=== PATIENT | male | born 1980 | race Caucasian/White ===

== ENCOUNTER 2022-10-06 21:07 | Emergency (ER) | payer OTHER ==
[~2022-10-06] VITALS: Ht 198.1 cm; Wt 207.0 kg
[2022-10-06] MEDS ORDERED: VENTOLIN HFA18 GM INH (21:35)
[2022-10-06] MEDS ORDERED: JANTOVEN10 MG PO (21:36)
[2022-10-06] MEDS ORDERED: JANTOVEN4 MG PO (21:36)
[2022-10-06] MEDS ORDERED: LAMICTAL100 MG PO (21:37)
[2022-10-06] MEDS ORDERED: NEURONTIN100 MG PO (21:37)
[2022-10-06] MEDS ORDERED: METFORMIN HCL500 M2 PO (21:37)
[2022-10-06] MEDS ORDERED: ZESTRIL20 MG PO (21:38)
[2022-10-06] MEDS ORDERED: EFFEXOR XR150 MG PO (21:38)
[2022-10-06] MEDS ORDERED: OMEPRAZOLE20 MG PO (21:38)
== END 2022-10-07 00:50 | disposition home or self-care (01) ==
LOC: ED 21:07
DX: S40.012A Contusion of left shoulder, initial encounter (principal); S60.212A Contusion of left wrist, initial encounter; M54.2 Cervicalgia; R51.9 Headache, unspecified; I10 Essential (primary) hypertension; E78.00 Pure hypercholesterolemia, unspecified; E11.9 Type 2 diabetes mellitus without complications; J45.909 Unspecified asthma, uncomplicated; Z79.899 Other long term (current) drug therapy; Z86.711 Personal history of pulmonary embolism; Z79.01 Long term (current) use of anticoagulants; V47.5XXA Car driver injured in collision with fixed or stationary object in traffic accident, initial encounter; Z23 Encounter for immunization
CPT/HCPCS: 36415; 70450; 70486; 71260; 72125; 73030; 73110; 73610; 74177; 80053; 82553; 83690; 85025; 85610; 90471; 90472; 90715; 99284-25; G0480; Q9967

== ENCOUNTER 2024-05-27 23:40 | Emergency (ER) | payer MEDICAID ==
[~2024-05-27] VITALS: Ht 193 cm; Wt 190.0 kg
[2024-05-28 00:07] LABS: HEMATOCRIT 39.6 % (35.0-50.0); MCH 27.6 (27-36); MONOCYTES 6.5 % (0-12)
[2024-05-28 00:12] LABS: BASOPHILS 0.9 % (0-2); EOSINOPHILS 0.1 % (0-6); HEMOGLOBIN 13.2 g/dL (12.0-18.0); LYMPHOCYTES 28.3 % (24-44); MCHC 33.4 g/dl (30-36); MCV 82.5 fl (81-99); NEUTROPHILS 64.2 % (39-80); PLATELET COUNT 397 K/uL (140-440); RDW 14.7 (10.5-15.0)
[2024-05-28 01:21] VITALS: BP 177/96
== END 2024-05-28 01:22 | disposition home or self-care (01) ==
LOC: ED 23:40
PROVIDERS: Family Medicine
DX: E11.621 Type 2 diabetes mellitus with foot ulcer (principal); L97.511 Non-pressure chronic ulcer of other part of right foot limited to breakdown of skin; I10 Essential (primary) hypertension; Z79.01 Long term (current) use of anticoagulants; Z79.84 Long term (current) use of oral hypoglycemic drugs; Z79.899 Other long term (current) drug therapy
CPT/HCPCS: 36415; 85025; 99283

== ENCOUNTER 2024-08-06 17:20 | Emergency (ER) | payer OTHER ==
[~2024-08-06] VITALS: Ht 193 cm; Wt 187.2 kg
[~2024-08-06 17:20] MED LIST: BACTRIM DS TAB1 EACH PO; BENZONATATE100 MG PO; CEPHALEXIN500 M1 PO; CLEOCIN HCL300 MG PO; EFFEXOR XR150 MG PO; ELIQUIS5 MG PO; JANTOVEN10 MG PO; JANTOVEN4 MG PO; LAMICTAL100 MG PO; LISINOPRIL-HCT1 EAC2 PO; METFORMIN HCL500 M2 PO; NEURONTIN100 MG PO; OMEPRAZOLE20 MG PO; VENTOLIN HFA18 GM INH; VICTOZA 3-0.6 MG/0.1 SUB-Q; ZESTRIL20 MG PO
--- OUTSIDE RECORDS SUMMARY | 2024-08-06 17:26 | XMS ---
PreManage Notification: GILBERT GAINES Security Commissioned Sales Associate Events No recent Security Events currently on file CRITERIA MET - [facility] - 2 Visits in 30 Days CARE PROVIDERS KATE CASILLAS Nurse Practitioner: Family Basilio HANC[place] PHONE: [phone] Jayy has no Care Guidelines for this patient. Noel VISIT COUNT (12 MO.) 3 [facility] TOTAL 3 NOTE: Visits indicate total known visits. ED/UCC VISIT TRACKING (12 MO.) 08/06/2024 17:20 [facility] [place] TYPE: Emergency COMPLAINT: - FEET PAIN 07/13/2024 04:10 [facility] [place] TYPE: Emergency COMPLAINT: - SKIN PROBLEM DIAGNOSES: - Acute upper respiratory infection, unspecified - Cellulitis of left toe - Essential (primary) hypertension - senior living (current) use of anticoagulants - Non-pressure chronic ulcer of other part of left foot limited to breakdown of skin - Other truck terminal manager (current) drug therapy - Other specified soft tissue disorders - Pure hypercholesterolemia, unspecified - Type 2 diabetes mellitus with foot ulcer - Unspecified asthma, uncomplicated 05/27/2024 23:41 [facility] [place] TYPE: Emergency COMPLAINT: - WOUND CHECK/DIABETIC DIAGNOSES: - Essential (primary) hypertension - senior living (current) use of anticoagulants - termite exterminator helper (current) use of oral hypoglycemic drugs - Non-pressure chronic ulcer of other part of right foot limited to breakdown of skin - Other truck terminal manager (current) drug therapy - Type 2 diabetes mellitus with foot ulcer - Unspecified open wound, right foot, subsequent encounter INPATIENT VISIT TRACKING (12 MO.) No inpatient visits to display in this time frame [id number]
[2024-08-06] MEDS ORDERED: clindamycin HCL 300 MG CAP PO ONE (18:15)
[2024-08-06] MEDS ORDERED: AMOXICILLIN/CLAVULANATE K 875 MG TAB PO ONE (18:15)
[2024-08-06] MEDS ORDERED: AMOX TR-K CLV1 EAC1 PO (19:19)
[2024-08-06] MEDS ORDERED: PERCOCET 5-3251 EACH PO (19:19)
[2024-08-06] MEDS ORDERED: CLINDAMYCIN HC150 MG PO (19:19)
[2024-08-06 19:28] VITALS: BP 172/94
== END 2024-08-06 19:30 | disposition home or self-care (01) ==
LOC: ED 17:20
DX: E11.621 Type 2 diabetes mellitus with foot ulcer (principal); L97.521 Non-pressure chronic ulcer of other part of left foot limited to breakdown of skin; I10 Essential (primary) hypertension; K21.9 Gastro-esophageal reflux disease without esophagitis; Z79.899 Other long term (current) drug therapy; Z79.84 Long term (current) use of oral hypoglycemic drugs
CPT/HCPCS: 73630; 99283

== ENCOUNTER 2024-08-14 11:43 | Emergency (ER) | payer OTHER ==
[~2024-08-14] VITALS: Ht 193 cm; Wt 188.4 kg
[~2024-08-14 11:43] MED LIST changes: +AMOX TR-K CLV1 EAC1 PO; +CLINDAMYCIN HC150 MG PO; +PERCOCET 5-3251 EACH PO
--- OUTSIDE RECORDS SUMMARY | 2024-08-14 11:50 | XMS ---
PreManage Notification: GILBERT GAINES Security Data Developer Events No recent Security Events currently on file CRITERIA MET - [facility] - 2 Visits in 30 Days CARE PROVIDERS -, [facility] Dentist: Emergency Worker Current [place] PHONE: [phone] Jayy has no Care Guidelines for this patient. Noel VISIT COUNT (12 MO.) [address] [place] [address] TOTAL 4 NOTE: Visits indicate total known visits. 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 foot limited to breakdown of skin - Other retirement (current) drug therapy - Type 2 diabetes mellitus with foot ulcer 07/13/2024 04:10 [facility] [place] TYPE: Emergency COMPLAINT: - SKIN PROBLEM DIAGNOSES: - Acute upper respiratory infection, unspecified - Cellulitis of left toe - Essential (primary) hypertension - long term care pharmacist (current) use of anticoagulants - Non-pressure chronic ulcer of other part of left foot limited to breakdown of skin - Other termite inspector (current) drug therapy - Other specified soft tissue disorders - Pure hypercholesterolemia, unspecified - Type 2 diabetes mellitus with foot ulcer - Unspecified asthma, uncomplicated 05/27/2024 23:41 [facility] [place] TYPE: Emergency COMPLAINT: - WOUND CHECK/DIABETIC DIAGNOSES: - Essential (primary) hypertension - halfway (current) use of anticoagulants - halfway (current) use of oral hypoglycemic drugs - Non-pressure chronic ulcer of other part of right foot limited to breakdown of skin - Other retirement (current) drug therapy - Type 2 diabetes mellitus with foot ulcer - Unspecified open wound, right foot, subsequent encounter INPATIENT VISIT TRACKING (12 MO.) No inpatient visits to display in this time frame [id number]
[2024-08-14] MEDS ORDERED: HYDROCODONE/ACETA 5/325 TAB PO ONE (13:00)
[2024-08-14] MEDS ORDERED: ALLERGY RELIEF5 M1 PO (13:12)
[2024-08-14] MEDS ORDERED: BENADRYL25 MG PO (13:12)
[2024-08-14] MEDS ORDERED: PROPRANOLOL HCL10 MG PO (13:13)
[2024-08-14] MEDS ORDERED: LIPITOR40 MG PO (13:13)
[2024-08-14] MEDS ORDERED: HYDROCODON-ACE1 EAC8 PO (13:14)
[2024-08-14 14:19] VITALS: BP 145/98
== END 2024-08-14 14:24 | disposition home or self-care (01) ==
LOC: ED 11:43
DX: E11.621 Type 2 diabetes mellitus with foot ulcer (principal); L97.529 Non-pressure chronic ulcer of other part of left foot with unspecified severity; S89.92XA Unspecified injury of left lower leg, initial encounter; S49.91XA Unspecified injury of right shoulder and upper arm, initial encounter; I10 Essential (primary) hypertension; E78.00 Pure hypercholesterolemia, unspecified; J45.909 Unspecified asthma, uncomplicated; K21.9 Gastro-esophageal reflux disease without esophagitis; E66.9 Obesity, unspecified; Z68.43 Body mass index [BMI] 50.0-59.9, adult; Z86.711 Personal history of pulmonary embolism; Z79.01 Long term (current) use of anticoagulants; Z79.899 Other long term (current) drug therapy; Z79.84 Long term (current) use of oral hypoglycemic drugs; W19.XXXA Unspecified fall, initial encounter
CPT/HCPCS: 73030; 73560; 73610; 73630; 99283

== ENCOUNTER 2024-12-22 01:07 | Emergency (ER) | payer OTHER ==
[~2024-12-22] VITALS: Ht 193 cm; Wt 177.1 kg
[~2024-12-22 01:07] MED LIST changes: +ALLERGY RELIEF5 M1 PO; +BENADRYL25 MG PO; +HYDROCODON-ACE1 EAC8 PO; +LIPITOR40 MG PO; +PROPRANOLOL HCL10 MG PO
[2024-12-22] MEDS ORDERED: AMOX TR-K CLV1 EAC1 PO (01:54)
[2024-12-22 02:07] VITALS: BP 163/83
[2024-12-22] MEDS ORDERED: AMOXICILLIN/CLAVULANATE K 875 MG HOME.PACK PO ONE (02:30)
== END 2024-12-22 02:09 | disposition home or self-care (01) ==
LOC: ED 01:07
DX: E11.621 Type 2 diabetes mellitus with foot ulcer (principal); L97.529 Non-pressure chronic ulcer of other part of left foot with unspecified severity; S80.812A Abrasion, left lower leg, initial encounter; S91.331A Puncture wound without foreign body, right foot, initial encounter; E11.40 Type 2 diabetes mellitus with diabetic neuropathy, unspecified; I10 Essential (primary) hypertension; E78.00 Pure hypercholesterolemia, unspecified; J45.909 Unspecified asthma, uncomplicated; K21.9 Gastro-esophageal reflux disease without esophagitis; Z86.711 Personal history of pulmonary embolism; Z79.01 Long term (current) use of anticoagulants; Z79.84 Long term (current) use of oral hypoglycemic drugs; Z79.85 Long-term (current) use of injectable non-insulin antidiabetic drugs; Z79.899 Other long term (current) drug therapy; W18.31XA Fall on same level due to stepping on an object, initial encounter
CPT/HCPCS: 73630; 73660; 99283

== ENCOUNTER 2025-04-10 19:51 | Emergency (ER) | payer OTHER ==
[~2025-04-10] VITALS: Ht 193 cm; Wt 177.0 kg
[2025-04-10] MEDS ORDERED: SODIUM CHLORIDE 0.9% 1,000 ML IV ONE (22:45)
[2025-04-10] MEDS ORDERED: IBLOOD GLUCOSE TEST STRIP 1 EA TEST XX ONE (22:45)
[2025-04-10 23:16] LABS: BASOPHILS 0.6 % (0.2-1.2); EOSINOPHILS 4.4 % (0.8-7.0); HEMATOCRIT 41.4 % (40.1-51.0); HEMOGLOBIN 13.7 g/dL (13.7-17.5); LYMPHOCYTES 19.1 % (21.8-53.1); MCH 26.4 PG (25.7-32.2); MCHC 33.1 g/dL (32.3-36.5); MCV 79.9 fL (79.0-92.2); MONOCYTES 8.1 % (5.3-12.2); NEUTROPHILS 67.4 % (34.0-67.9); PLATELET COUNT 304 K/uL (163-337); RBC 5.18 M/uL (4.63-6.08)
[2025-04-10 23:34] LABS: BILIRUBIN, URINE NEGATIVE (negative); BLOOD/HGB, URINE NEGATIVE (Negative); KETONE, URINE NEGATIVE (Negative); LEUK ESTERASE, URINE NEGATIVE (negative); NITRITE, URINE POSITIVE (negative)
[2025-04-10 23:38] LABS: ALBUMIN/GLOBULIN RATIO 0.61 (1.1-2.4); ALCOHOL, MEDICAL <3 ng/dL (<3); ALKALINE PHOSPHATASE 96 U/L (46-116); ALT (SGPT) 30 U/L (14-59); ANION GAP 10.6 (7-21); AST (SGOT) 21 U/L (15-37); BILIRUBIN, TOTAL 1.3 mg/dL (0.2-1.0); BUN/CREATININE RATIO 10.22 (6.0-28.6); CALCIUM 8.6 mg/dL (8.5-10.1); CARBON DIOXIDE 29 mmol/L (21-32); CHLORIDE 101 mmol/L (98-107); CREATININE, SERUM 0.88 mg/dL (0.70-1.30); GLOMERULAR FILTRATION RATE,EST 109 mL/min (>60); POTASSIUM 3.6 mmol/L (3.5-5.1); PROTEIN, TOTAL 7.9 g/dL (6.4-8.2); UREA NITROGEN 9 mg/dL (7-18)
[2025-04-10 23:40] LABS: EPITHELIAL CELLS, URINE SQUAMOUS 1+ /lpf (0-1+)
[2025-04-10 23:41] LABS: BACTERIA, URINE 3+ /hpf (negative); CASTS, URINE NONE SEEN \\lpf; COLLECTION TYPE, URINE CLEAN CATCH; CRYSTALS, URINE NONE SEEN (0-1+); RED BLOOD CELLS, URINE 0-1 /hpf (0-5); REFLEX CULTURE, URINE Yes (No)
[2025-04-10 23:49] LABS: AMPHETAMINES, URINE POSITIVE (NEGATIVE); BARBITURATES, URINE NEGATIVE (NEGATIVE); BENZODIAZEPINE, URINE NEGATIVE (NEGATIVE); BUPRENORPHINE, URINE NEGATIVE (NEGATIVE); CANNABINOID, URINE POSITIVE (NEGATIVE); COCAINE, URINE NEGATIVE (NEGATIVE); ECSTASY, URINE NEGATIVE (NEGATIVE); FENTANYL, URINE NEGATIVE (NEGATIVE); METHADONE, URINE NEGATIVE (NEGATIVE); OPIATES, URINE NEGATIVE (NEGATIVE); OXYCODONE, URINE NEGATIVE (NEGATIVE); PHENCYCLIDINE, URINE NEGATIVE (NEGATIVE)
[2025-04-11] MEDS ORDERED: TRIMETHOPRIM/SULFAMETHOXAZOLE 1 EA HOME.PACK PO ONE (00:30)
[2025-04-11 00:46] VITALS: BP 140/87
--- NOTE | 2025-04-11 13:51 | EKG ---
[facility] [address] [place] [address] Signed Normal sinus rhythm Low voltage QRS Borderline ECG No previous ECGs available Confirmed by Keron Velásquez MD () on 04/11/2025 1:51:08 PM Electronically Signed By: KERON VELÁSQUEZ MD 04/11/25 135 PATIENT NAME: GILBERT GANIES Electrocardiogram DATE OF : 80 PHYSICIAN: KERON VELÁSQUEZ MD REPORT #: [id number] REPORT IS CONFIDENTIAL AND NOT TO BE RELEASED WITHOUT AUTHORIZATION
== END 2025-04-11 00:47 | disposition home or self-care (01) ==
LOC: ED 19:51
PROVIDERS: Family Medicine
DX: L03.116 Cellulitis of left lower limb (principal); E08.621 Diabetes mellitus due to underlying condition with foot ulcer; N39.0 Urinary tract infection, site not specified; F19.10 Other psychoactive substance abuse, uncomplicated; K21.9 Gastro-esophageal reflux disease without esophagitis; J45.909 Unspecified asthma, uncomplicated; E78.00 Pure hypercholesterolemia, unspecified; I10 Essential (primary) hypertension; Z91.141 Patient's other noncompliance with medication regimen due to financial hardship; Z79.84 Long term (current) use of oral hypoglycemic drugs; Z79.899 Other long term (current) drug therapy
CPT/HCPCS: 36415; 73610; 73630; 80053; 80307; 81001; 82010; 82803; 83880; 84484; 85025; 87088; 87186; 93005; 93010; 99284; A9270; G0480; J7030

== ENCOUNTER 2025-04-23 02:27 | Inpatient (IN) | payer OTHER ==
[~2025-04-23] VITALS: Ht 193 cm; Wt 183.0 kg
[2025-04-23] VITALS (7 sets, daily range): BP systolic 111–131; BP diastolic 61–76
--- OUTSIDE RECORDS SUMMARY | 2025-04-23 02:33 | XMS ---
PreManage Notification: GILBERT GAINES Security Hotel Breakfast Attendant Events No recent Security Events currently on file CRITERIA MET - [facility] - 2 Visits in 30 Days CARE PROVIDERS -, [facility] Dentist: Director Of [facility]quis[facility] PHONE: [phone] [facility] Clinic/Center: Primary [facility] PHONE: [phone] Jayy has no Care Guidelines for this patient. ESerafin VISIT COUNT (12 MO[address] [place] [address] TOTAL 7 NOTE: Visits indicate total known visits. ED/UCC VISIT TRACKING (12 MO.) 04/23/2025 02:27 [facility] [place] TYPE: Emergency COMPLAINT: - WOUND CHECK 04/10/2025 19:52 [facility] TYPE: Emergency COMPLAINT: - LEG PAIN/INJURY DIAGNOSES: - Cellulitis of left lower limb - Diabetes mellitus due to underlying condition with foot ulcer - Essential (primary) hypertension - Gastro-esophageal reflux disease without esophagitis - detention (current) use of oral hypoglycemic drugs - Other custodial (current) drug therapy - Other psychoactive substance abuse, uncomplicated - Pain in left ankle and joints of left foot - Patient's other noncompliance with medication regimen due to financial hardship - Pure hypercholesterolemia, unspecified - Type 2 diabetes mellitus with other skin complications - Unspecified asthma, uncomplicated - Urinary tract infection, site not specified 12/22/2024 01:08 [facility] [place] TYPE: Emergency COMPLAINT: - WOUND CHECK DIAGNOSES: - Abrasion, left lower leg, initial encounter - Encounter for change or removal of nonsurgical wound dressing - Essential (primary) hypertension - Fall on same level due to stepping on an object, initial encounter - Gastro-esophageal reflux disease without esophagitis - detention (current) use of anticoagulants - detention (current) use of oral hypoglycemic drugs - Long-term (current) use of injectable non-insulin antidiabetic drugs - Non-pressure chronic ulcer of other part of left foot with unspecified severity - Other terminal superintendent (current) drug therapy - Personal history of pulmonary embolism - Puncture wound without foreign body, right foot, initial encounter - Pure hypercholesterolemia, unspecified - Type 2 diabetes mellitus with diabetic neuropathy, unspecified - Type 2 diabetes mellitus with foot ulcer - Unspecified asthma, uncomplicated 08/14/2024 11:44 [facility] [place] TYPE: Emergency COMPLAINT: - LT TOE PAIN DIAGNOSES: - Body mass index [BMI] 50.0-59.9, adult - Essential (primary) hypertension - Gastro-esophageal reflux disease without esophagitis - terminal operations manager (current) use of anticoagulants - detention (current) use of oral hypoglycemic drugs - Non-pressure chronic ulcer of other part of left foot with unspecified severity - Obesity, unspecified - Other terminal superintendent (current) drug therapy - Personal history of pulmonary embolism - Pure hypercholesterolemia, unspecified - Type 2 diabetes mellitus with foot ulcer - Unspecified asthma, uncomplicated - Unspecified fall, initial encounter - Unspecified injury of left lower leg, initial encounter - Unspecified injury of right shoulder and upper arm, initial encounter - Unspecified open wound of left great toe without damage to nail, initial encounter 08/06/2024 17:20 [facility] [place] TYPE: Emergency COMPLAINT: - FEET PAIN DIAGNOSES: - Essential (primary) hypertension - Gastro-esophageal reflux disease without esophagitis - terminal operations manager (current) use of oral hypoglycemic drugs - Non-pressure chronic ulcer of other part of left foot limited to breakdown of skin - Other custodial (current) drug therapy - Type 2 diabetes mellitus with foot ulcer 07/13/2024 04:10 [facility] [place] TYPE: Emergency COMPLAINT: - SKIN PROBLEM DIAGNOSES: - Acute upper respiratory infection, unspecified - Cellulitis of left toe - Essential (primary) hypertension - detention (current) use of anticoagulants - Non-pressure chronic ulcer of other part of left foot limited to breakdown of skin - Other custodial (current) drug therapy - Other specified soft tissue disorders - Pure hypercholesterolemia, unspecified - Type 2 diabetes mellitus with foot ulcer - Unspecified asthma, uncomplicated 05/27/2024 23:[address] [facility] [place] TYPE: Emergency COMPLAINT: - WOUND CHECK/DIABETIC DIAGNOSES: - Essential (primary) hypertension - detention (current) use of anticoagulants - detention (current) use of oral hypoglycemic drugs - Non-pressure chronic ulcer of other part of right foot limited to breakdown of skin - Other custodial (current) drug therapy - Type 2 diabetes mellitus with foot ulcer - Unspecified open wound, right foot, subsequent encounter INPATIENT VISIT TRACKING (12 MO.) No inpatient visits to display in this time frame [id number]
[2025-04-23] MEDS ORDERED: LIRAGLUTID0.6 MG/0.1 SUB-Q (02:51)
[2025-04-23 02:59] LABS: BASOPHILS 0.8 % (0.2-1.2); EOSINOPHILS 0 % (0.8-7.0); LYMPHOCYTES 24.2 % (21.8-53.1); MCH 26.1 PG (25.7-32.2); MCHC 32.5 g/dL (32.3-36.5); MCV 80.4 fL (79.0-92.2); MONOCYTES 10.4 % (5.3-12.2); NEUTROPHILS 63.8 % (34.0-67.9); RBC 4.90 M/uL (4.63-6.08)
[2025-04-23] MEDS ORDERED: PIPERACILLIN/TAZOBACTAM 4.5 GM in SODIUM CHLORIDE 0.9% 100 ML IV ONE (03:00)
[2025-04-23] MEDS ORDERED: DAPTOmycin 500 MG/10 ML VIAL IV ONE ×2 (03:00→09:00)
[2025-04-23 03:15] LABS: ALT (SGPT) 25.0 U/L (14-59); AST (SGOT) 23.0 U/L (15-37); GLOMERULAR FILTRATION RATE,EST 85.0 mL/min (>60); PROTEIN, TOTAL 8.5 g/dL (6.4-8.2); UREA NITROGEN 14.0 mg/dL (7-18)
[2025-04-23 03:21] LABS: LACTIC ACID, BLOOD 0.8 mmol/L (0.4-2.0)
[2025-04-23 04:04] LABS: ERYTHROCYTE SEDIMENTATION RATE 69
[2025-04-23] MEDS ORDERED: HYDROCODONE/ACETA 5/325 TAB PO ONE (04:45)
[2025-04-23 06:26] LABS: BLOOD/HGB, URINE NEGATIVE (Negative); KETONE, URINE NEGATIVE (Negative); LEUK ESTERASE, URINE NEGATIVE (negative); NITRITE, URINE NEGATIVE (negative)
[2025-04-23 06:31] LABS: AMPHETAMINES, URINE POSITIVE (NEGATIVE); BARBITURATES, URINE NEGATIVE (NEGATIVE); BENZODIAZEPINE, URINE NEGATIVE (NEGATIVE); CANNABINOID, URINE POSITIVE (NEGATIVE); COCAINE, URINE NEGATIVE (NEGATIVE); ECSTASY, URINE NEGATIVE (NEGATIVE); FENTANYL, URINE NEGATIVE (NEGATIVE); METHADONE, URINE NEGATIVE (NEGATIVE); OPIATES, URINE NEGATIVE (NEGATIVE); OXYCODONE, URINE NEGATIVE (NEGATIVE); PHENCYCLIDINE, URINE NEGATIVE (NEGATIVE)
[2025-04-23] MEDS ORDERED: ACETAMINOPHEN 325 MG TAB PO PRN ×2 (07:00→09:15)
--- NOTE | 2025-04-23 07:45 | NUR ---
PT ARRIVES TO MED-SURG VIA GURNEY AT 0735. PT AMBULATES FROM GURNEY TO BED, TOLERATES THIS WELL. VERBAL REPORT RECEIVED FROM PAMELA LOVE. VSS. PT ORIENTED TO ROOM, BED, AND CALL LIGHT. ICE WATER PROVIDED PER PT REQUEST.
[2025-04-23] MEDS ORDERED: LAMOTRIGINE200 MG PO (08:12)
[2025-04-23] MEDS ORDERED: VENLAFAXINE HCL75 M1 PO (08:15)
[2025-04-23] MEDS ORDERED: VENLAFAXINE HCL 75 MG CAPCR PO SCH ×3 (09:14→09:30)
[2025-04-23] MEDS ORDERED: PROPRANOLOL HCL 10 MG TAB PO SCH (09:14)
[2025-04-23] MEDS ORDERED: ENOXAPARIN SODIUM 150 MG/ML SUB-Q SCH (09:15)
[2025-04-23] MEDS ORDERED: lamoTRIgine 100 MG TAB PO SCH (09:15)
[2025-04-23] MEDS ORDERED: PANTOPRAZOLE SODIUM 40 MG TABEC PO SCH (09:15)
[2025-04-23] MEDS ORDERED: SODIUM CHLORIDE 0.9% 1,000 ML IV ONE (09:15)
[2025-04-23] MEDS ORDERED: ENOXAPARIN SODIUM 60 MG/0.6 ML SYR SUB-Q SCH (09:32)
[2025-04-23] MEDS ORDERED: ENOXAPARIN SODIUM 100 MG/ML SYR SUB-Q SCH (09:36)
[2025-04-23] MEDS ORDERED: ENOXAPARIN SODIUM 80 MG/0.8 ML SYR SUB-Q SCH (09:37)
[2025-04-23] MEDS ORDERED: DEXTROSE 5% 1,000 ML IV PRN (10:45)
[2025-04-23] MEDS ORDERED: IBLOOD GLUCOSE TEST STRIP 1 EA TEST XX PRN (10:45)
[2025-04-23] MEDS ORDERED: DEXTROSE 50% 50 ML SYR IV PRN ×2 (10:45)
[2025-04-23] MEDS ORDERED: GLUCAGON,HUMAN RECOMBINANT 1 MG/ML VIAL SUB-Q PRN (10:45)
[2025-04-23] MEDS ORDERED: IBLOOD GLUCOSE TEST STRIP 1 EA TEST XX SCH (12:00)
[2025-04-23] MEDS ORDERED: PHARMACY RENAL DOSE ADJUSTMENT 1 DOSE MISC PO SCH (12:00)
[2025-04-23] MEDS ORDERED: INSULIN LISPRO 100 UNIT/ML ML SUB-Q SCH (12:00)
[2025-04-23] MEDS ORDERED: ALBUTEROL SULFATE 0.083% 3 ML VIAL INH PRN (12:00)
[2025-04-23] MEDS ORDERED: PIPERACILLIN/TAZOBACTAM 4.5 GM in SODIUM CHLORIDE 0.9% 100 ML IV SCH (12:45)
--- NOTE | 2025-04-23 14:33 | NUR ---
PATIENT IN BED RESTING WITH EYES CLOSED AT THIS TIME. VITALS AND I&O'S DONE AND CHARTED. CALL LIGHT IN REACH. NO FURTHER NEEDS AT THIS TIME.
--- NOTE | 2025-04-23 16:12 | NUR ---
PT RESTING IN BED, REPORTS FEELING TIRED. RT AT BEDSIDE TO FIT CPAP MACHINE, PT TOLERATING WELL. PT REPORTS PAIN 5/10 AT THIS TIME, WHICH IS TOLERABLE. COFFEE PROVIDED PER REQUEST, DENIES FURTHER NEEDS. CALL LIGHT IN REACH
--- NOTE | 2025-04-23 17:04 | NUR ---
PT RESTS IN BED WITH CPAP IN PLACE, PT IS AWAKE AND RESTING. CALL LIGHT IN REACH, NO REQUESTS AT THIS TIME.
--- NOTE | 2025-04-23 18:10 | NUR ---
DR. MAZARIEGOS INTO SEE PT, LANCES WOUND, IRRIGATES, OBTAINES WOUND CULTURE AND DRESSING LEFT FOOT WOUND, PT TOLERATES WELL.
--- NOTE | 2025-04-23 19:25 | NUR ---
REPORT RECEIVED FROM DAYSSRI RN. PATIENT IS SITTING ON SIDE OF BED. LEFT FOOT WRAPPED IN BRITTA BANDAGE. REPORTS NO PAIN TO LLE ON PALPATION. HE DENIES ANY NEEDS, CALL LIGHT IN REACH
--- NOTE | 2025-04-23 19:30 | NUR ---
PHONE CALL FROM pt'S SISTER MONICA. IN TO CHECK ON pt, RESTING IN BED ON RIGHT SIDE WITH EYES CLOSED. NO DISTRESS NOTED. PRIMARY RN UPDATED SISTER WOULD LIKE UPDATE, NOT ON pt'S CONTACT LIST. [phone].
--- NOTE | 2025-04-23 22:20 | NUR ---
ASSESSMENT COMPLETED. SCHEDULED MEDICATIONS GIVEN PER ORDER. IV DRESSING SECURED. PATIENT WEARING CPAP FOR BEDTIME. HE DENIES ANY NEEDS, CALL LIGHT IN REACH.
--- NOTE | 2025-04-23 23:25 | NUR ---
CPOX IN PLACE.
[2025-04-24] VITALS (9 sets, daily range): BP systolic 101–133; BP diastolic 57–81
--- NOTE | 2025-04-24 00:05 | NUR ---
ROUNDED ON PATIENT, PATIENT RESTING WITH EYES CLOSED, RESPIRATIONS EVEN AND UNLABORED. CPAP IN PLACE, CPOX IN PLACE. NO NEEDS IDENTIFIED, CALL LIGHT IN REACH
--- NOTE | 2025-04-24 02:38 | NUR ---
HORN PLAYER IN ROOM TO OBTAIN VS, IV MEDICATION COMPLETED, IV SALINE LOCKED AT THIS TIME. NO NEEDS, CALL LIGHT IN REACH
--- NOTE | 2025-04-24 03:19 | NUR ---
CALL LIGHT ANSWERED, PRN PAIN MEDICATION GIVEN PER REQUEST. PATIENT STATES "IT FEELS LIKE SOMEONE IS STABBING MY FOOT". HE DECLINES OFFER TO ELEVATE LEG ON PILLOW. HE DENIES FURTHER NEEDS, CALL LIGHT IN REACH
--- NOTE | 2025-04-24 03:29 | NUR ---
IN ROOM IN RESPONSE TO BED ALARM, PATIENT STATES HE WAS ATTEMPTING TO STAND AND USE URINAL. PATIENT USED URINAL AND SAT AT THE EDGE OF THE BED. REQUESTING TO SIT ON EDGE OF BED FOR A BIT. BED ALARM ON, PATIENT VERBALIZED UNDERSTANDING THAT ALARM WILL GO OFF IF HE STANDS UP. CALL LIGHT IN REACH
[2025-04-24 05:22] LABS: BASOPHILS 1.0 % (0.2-1.2); EOSINOPHILS 2.9 % (0.8-7.0); LYMPHOCYTES 40.2 % (21.8-53.1); MCH 26.6 PG (25.7-32.2); MCHC 33.4 g/dL (32.3-36.5); MCV 79.6 fL (79.0-92.2); MONOCYTES 9.0 % (5.3-12.2); NEUTROPHILS 46.4 % (34.0-67.9); RBC 4.51 M/uL (4.63-6.08)
[2025-04-24 05:34] LABS: GLOMERULAR FILTRATION RATE,EST 115.0 mL/min (>60); UREA NITROGEN 10.0 mg/dL (7-18)
--- NOTE | 2025-04-24 06:21 | NUR ---
SCHEDULED MED ADMINISTERED PER ORDER. VS OBTAINED AND RECORDED. INTAKE AND OUTPUT DOCUMENTED. PATIENT RESTING FOLLOWING ASSESSMENT. LEFT FOOT REMAINS DRESSED IN BRITTA BANDAGE, DRESSING IS C/D/I. REDNESS ON THE LEFT LEG IS OUTLINED. HE DENIES FURTHER NEEDS, CALL LIGHT IN REACH
--- NOTE | 2025-04-24 07:39 | NUR ---
RECIEVED SHIFT REPORT. PT IS RESTING IN BED, EYES CLOSED, BREATHING EVEN AND UNLABORED. CALL LIGHT IN REACH.
--- NOTE | 2025-04-24 07:57 | NUR ---
DR HURTADO IN ROOM. TO CHANGE DRESSING ON LEFT FOOT. REDRESSED WITH IODINE, IDOFLEX, ABD PAD, KRELEX, AND COBAND. PAIN LEVEL TOLERABLE AT THIS TIME. SAT UP ON THE SIDE OF BED FOR BREAKFAST. DENIES NEEDS AT THIS TIME. CALL LIGHT IN REACH.
[2025-04-24] MEDS ORDERED: DAPTOmycin 500 MG/10 ML VIAL IV SCH (09:00)
--- NOTE | 2025-04-24 09:18 | NUR ---
PATIENT IS CURRENTLY SITTING UP IN THE RECLINER. WORKED WITH PT AND BRUSHED THEIR TEETH, WASHED FACE, AND BRUSHED HAIR WITH OT. BED LINENS WERE CHANGED BY THIS AUDIO RECORDING ENGINEER. URINAL EMPTIED AND RINSED. CALL LIGHT AND PERSONAL ITEMS ARE WITHIN REACH. A HOT PACK WAS PROVIDED. NO OTHER CARES WERE REQUESTED.
--- NOTE | 2025-04-24 09:52 | NUR ---
INTO ROOM FOR MEDICATION ADMINISTRATION. PT SITTING UP IN CHAIR, RESTING WITH EYES CLOSED. MRI IN ROOM TO TAKE PT FOR L FOOT MRI. UPDATED PT ON PLANS, DENIES NEEDS AT THIS TIME
--- NOTE | 2025-04-24 10:18 | NUR ---
UR CLINICAL REVIEW: MCG-PER MCG REVIEW MEETS INPT FOR OSTEOMYELITIS WITH NEED FOR SURGICAL INTERVENTION AND IV ABX [facility] INPT 04/23/25 @ 0649 ORDER MATCHES REG CLINICAL FAXED TO [facility] FOR AUTH REVIEW DISCHARGE TO HOME WHEN STABLE. TO OR FOR SURGICAL PROCEDURE 04/26/25. 04/25/25 DC REVIEW
--- NOTE | 2025-04-24 11:00 | NUR ---
Spoke with Lj. He lives in apartment with roommates. one step into the home. He does not use any DME, he drives. He does run out of food at times. List of food benavides and resources given. He does not remember who his pcp is. He thinks they are at [facility]. I called PF and he is not there pt and has not been seen in their Urgent Care. I called [facility] and pt was seen there in the past. They will accept him back. Appt scheduled for 03/03/25 at 1 pm. Pt denies other needs and plans on dc to home when cleared medically. Pt will drive himself as he drive himself in.
--- NOTE | 2025-04-24 11:10 | NUR ---
PT BACK FROM MRI. MEDICATIONS GIVEN PER ORDER. PT REPORTS PAIN 3/10 IN L FOOT, TOLERABLE AT THIS TIME. DENIES FURTHER NEEDS
--- NOTE | 2025-04-24 12:20 | NUR ---
PT SITTING UP ON THE SIDE OF THE BED, EATING LUNCH. PROVIDED WITH COFFEE PER REQUEST. DENIES FURTHER NEEDS, CALL LIGHT IN REACH
--- NOTE | 2025-04-24 13:50 | NUR ---
IN ROOM FOR IV ABX ADMINISTRATION. PT RESTING IN BED, EYES CLOSED. HAZMAT CDL A DRIVER IN ROOM TO PREPARE PT FOR SHOWER.
--- NOTE | 2025-04-24 15:30 | NUR ---
PT FINISHED WITH SHOWER, NOW BACK SITTING IN BED. IV ABX CONTINUING. PROVIDED WITH CORETTA AND ICE WATER PER REQUEST. UPDATED PT ON PLAN OF CARE, DENIES NEEDS AT THIS TIME. CALL LIGHT IN REACH
[2025-04-24] MEDS ORDERED: HYDROCODONE/APAP 10/325 1 TAB PO PRN (16:15)
--- NOTE | 2025-04-24 16:45 | NUR ---
INTO ROOM FOR MEDICATION ADMINISTRATION. UPDATED PT ON PLAN OF CARE. URINAL EMPTIED. PROVIDED WITH HEAT PACK AND ICE WATER PER REQUEST. NO OTHER NEEDS, CALL LIGHT IN REACH
--- NOTE | 2025-04-24 19:36 | NUR ---
REPORT RECEIVED FROM DAY SHIFT RN. PATIENT RESTING IN BED. DENIES NEEDS AT THIS TIME. CALL LIGHT IN REACH.
--- NOTE | 2025-04-24 21:42 | NUR ---
PATIENT RESTING IN BED. SCHEDULED MEDICATION ADMINISTERED. PATIENT DENIES NEEDS AT THIS TIME. PATIENT DENIES PAIN. ASSESSMENT COMPLETE. LLE DRESSING C/D/I. NO FURTHER NEEDS. CALL LIGHT IN REACH.
--- NOTE | 2025-04-24 23:19 | NUR ---
PATIENT RESTING IN BED WITH EYES CLOSED. RESPIRATIONS EVEN AND UNLABORED. CPAP IN PLACE. CPOX IN PLACE. NO FURTHER NEEDS. CALL LIGHT IN REACH.
--- NOTE | 2025-04-24 23:55 | NUR ---
PATIENT CALLED REQUESTING ANOTHER HOSPITAL GOWN. PATIENT USED THE URINAL AND MISSED SOME ON THE FLOOR AND WET THE GOWN. GOWN ON AND CLEANED THE FLOOR AND WIPED WITH PURPLE WIPES. NO OTHER NEEDS AT THIS TIME. EMPTIED URINAL WITH 950ML YELLOW URINE. WHITE BOARD UPDATED.
[2025-04-25] VITALS (9 sets, daily range): BP systolic 107–125; BP diastolic 58–81
--- NOTE | 2025-04-25 01:05 | NUR ---
PATIENT RESTING IN BED WITH EYES CLOSED. RESPIRATIONS EVEN AND UNLABORED. CALL LIGHT IN REACH.
--- NOTE | 2025-04-25 02:43 | NUR ---
PATIENT RESTING IN BED ON BACK WITH EYES CLOSED. RESPIRATIONS EVEN AND UNLABORED. CALL LIGHT IN REACH.
--- NOTE | 2025-04-25 04:16 | NUR ---
PATIENT RESTING IN BED WITH EYES CLOSED. RESPIRATIONS EVEN AND UNLABORED. CALL LIGHT IN REACH.
[2025-04-25 05:50] LABS: BASOPHILS 0.8 % (0.2-1.2); EOSINOPHILS 0.3 % (0.8-7.0); LYMPHOCYTES 34.9 % (21.8-53.1); MCH 26.1 PG (25.7-32.2); MCHC 33.1 g/dL (32.3-36.5); MCV 78.9 fL (79.0-92.2); MONOCYTES 6.8 % (5.3-12.2); NEUTROPHILS 56.7 % (34.0-67.9); RBC 4.79 M/uL (4.63-6.08)
--- NOTE | 2025-04-25 06:00 | NUR ---
PATIENT RESTING IN BED, REPORTING 7/10 LEFT FOOT PAIN. PRN PAIN MEDICATION ADMINISTERED PER PATIENT REQUEST. IV ABX INFUSING PER ORDER. PATIENT HAS NO FURTHER NEEDS. CALL LIGHT IN REACH.
[2025-04-25 06:02] LABS: GLOMERULAR FILTRATION RATE,EST 117.0 mL/min (>60); UREA NITROGEN 8.0 mg/dL (7-18)
--- NOTE | 2025-04-25 07:24 | NUR ---
REPORT RECEIVED FROM PAMELA STRATTON. PT RESTING IN BED, IV ABX CONTIUING. REPORTS PAIN HAS IMPROVED, TOLERABLE AT THIS TIME. DENIES NEEDS. CALL LIGHT IN REACH. DR VELÁSQUEZ NOTIFIED OF POSITIVE BLOOD CULTURE, NO NEW ORDERS
--- NOTE | 2025-04-25 08:50 | NUR ---
INTO ROOM FOR MEDICATION ADMINISTRATION. PT REPORTS THAT PAIN IS TOLERABLE, 5/10 AT THIS TIME. NEW IV PLACED IN RFA PER PT REQUEST. IV IN LAC SL. IV ABX CONTINUING PER EMAR ORDER. PT NOW EATING BREAKFAST, CALL LIGHT IN REACH
--- NOTE | 2025-04-25 09:20 | NUR ---
INTO ROOM TO ANSWER CALL LIGHT. REPORTS FEELING NAUSEOUS. PRN ZOFRAN GIVEN PER EMAR. CALL LIGHT IN REACH
--- NOTE | 2025-04-25 09:27 | NUR ---
MED REC COMPLETE
--- NOTE | 2025-04-25 10:08 | NUR ---
DISCHARGE REVIEW: NO PCP AND LACK OF FOOD NOTED BARRIERS TO DC. APPOINTMENT MADE BY CM TO REESTABLISH CARE WITH [facility]. LIIST OF FOOD [place] [employer]OURCES GIVEN. DISCHARGE TO HOME WHEN STABLE. SCEDULED FOR OR PROCEDURE 04/26/25 ADD 04/26/25 FOLLOWING PROCEDURE NO ESCALATIONS/ACTIONS NEEDED
--- NOTE | 2025-04-25 11:10 | NUR ---
PT RESTING IN BED, EYES CLOSED. RESPIRATIONS EVEN. IV ABX COMPLETE. RFA IV SL. DENIES NEEDS, CALL LIGHT IN REACH
--- NOTE | 2025-04-25 11:52 | NUR ---
INTO ROOM FOR MEDICATION ADMINISTRATION. UPDATED ON PLAN OF CARE, DENIES NEEDS, CALL LIGHT IN REACH
--- NOTE | 2025-04-25 12:34 | NUR ---
PT SLEEPING IN BED, RESPIRATIONS EVEN. CALL LIGHT ON BEDSIDE TABLE IN REACH
--- NOTE | 2025-04-25 14:13 | NUR ---
INTO ROOM TO START IV ABX PER ORDER. PROVIDED PT WITH MILK AND COFFEE PER REQUEST. DENIES FURTHER NEEDS, CALL LIGHT IN REACH
--- NOTE | 2025-04-25 14:33 | NUR ---
ATTEMPTS TO SEE PATIENT TODAY, HAS BEEN RESTING. PLANS TO DC TO HOME WHEN MEDICALLY READY. PCP ESTABLISHED WELL RESOURCES FOR FOOD PROVIDED. NO FURHTER CM NEEDS AT THIS TIME.
--- NOTE | 2025-04-25 15:28 | NUR ---
PT RESTING IN BED, NO DISTRESS NOTED. ASSESSMENT COMPETED. PT REPORTS THAT PAIN IS 4/10, TOLERABLE AT THIS TIME. PROVIDED WITH COFFEE PER REQUEST. IV ABX CONTINUING PER ORDER. DENIES FURTHER NEEDS. CALL LIGHT IN REACH
--- NOTE | 2025-04-25 16:44 | NUR ---
PT RESTING IN BED, URINAL EMPTIED. DENIES FURTHER NEEDS, CALL LIGHT IN REACH
--- NOTE | 2025-04-25 18:17 | NUR ---
PT RESTING IN BED, REPORTS PAIN TOLERABLE AT THIS TIME. IV ABX COMPLETE. DENIES FURTHER NEEDS, CALL LIGHT IN REACH
--- NOTE | 2025-04-25 18:32 | NUR ---
PATIENT WAS OFFERED A SHOWER BUT DECLINED, STATING THEY WERE OKAY AFTER HAVING ONE YESTERDAY. BED LINENS AND GOWN WERE CHANGED. COFFEE AND SODA PROVIDED TO DRINK. NO OTHER CARES WERE REQUESTED.
--- NOTE | 2025-04-25 19:17 | NUR ---
REPORT RECEIVED FROM DAY SHIFT RN. PATIENT RESTING IN BED. DENIES NEEDS AT THIS TIME. CALL LIGHT IN REACH.
[2025-04-25] MEDS ORDERED: SODIUM CHLORIDE 0.9% 1,000 ML IV SCH (20:45)
--- NOTE | 2025-04-25 21:30 | NUR ---
PATIENT RESTING IN BED. SCHEDULED MEDICATION ADMINISTERED. ASSESSMENT COMPLETE. LLE DRESSING C/D/I. PATIENT DENIES PAIN. SCHEDULED IV FLUID INFUSING PER ORDER. PATIENT EDUCATED ON NPO STATUS AT MIDNIGHT. PATIENT VERBILIZES UNDERSTANDING. PATIENT DENIES FURTHER NEEDS. CALL LIGHT IN REACH. CPOX IN PLACE.
--- NOTE | 2025-04-25 23:08 | NUR ---
ROUTE SALESMAN AND DRIVER GAVE PT ONE MILK, TWO PACKS OF GRAHM CRACKERS, AND TWO PUDDINGS.
--- NOTE | 2025-04-25 23:32 | NUR ---
PATIENT RESTING IN BED. DENIES NEEDS AT THIS TIME. RR EVEN AND UNLABORED. CALL LIGHT IN REACH.
--- NOTE | 2025-04-25 23:59 | NUR ---
PATIENT NPO AT THIS TIME. FLUIDS/FOOD REMOVED FROM BESIDE. WHITE BOARD UPDATED. NPO SIGN ON DOOR.
[2025-04-26] VITALS (12 sets, daily range): BP systolic 123–139; BP diastolic 67–82
--- NOTE | 2025-04-26 00:59 | NUR ---
PATIENT RESTING IN BED ON BACK WITH EYES CLOSED. RESPIRATIONS EVEN AND UNLABORED. CALL LIGHT IN REACH.
--- NOTE | 2025-04-26 02:52 | NUR ---
PATIENT RESTING IN BED. RESPIRATIONS EVEN AND UNLABORED. CALL LIGHT IN REACH.
--- NOTE | 2025-04-26 04:05 | NUR ---
PATIENT RESTING IN BED, AWAKE. CHLORHEXIDINE WIPE DOWN COMPLETED BY PATIENT AND THIS RN. NEW GOWN PLACED ON PATIENT. NEW LINENS, SLIDE SHEET, AND RODRIGUEZ PLACED ON BED. VS AND I&Os OBTAINED AND RECORDED. PATIENT LLE DRESSING C/D/I. PATIENT DENIES FURTHER NEEDS AT THIS TIME. CALL LIGHT IN REACH.
[2025-04-26 05:28] LABS: BASOPHILS 1.0 % (0.2-1.2); EOSINOPHILS 5.9 % (0.8-7.0); LYMPHOCYTES 40.8 % (21.8-53.1); MCH 26.4 PG (25.7-32.2); MCHC 33.3 g/dL (32.3-36.5); MCV 79.1 fL (79.0-92.2); MONOCYTES 7.2 % (5.3-12.2); NEUTROPHILS 44.5 % (34.0-67.9); RBC 4.74 M/uL (4.63-6.08)
[2025-04-26 05:39] LABS: GLOMERULAR FILTRATION RATE,EST 114.0 mL/min (>60); UREA NITROGEN 10.0 mg/dL (7-18)
--- NOTE | 2025-04-26 05:44 | NUR ---
CALL PLACED TO DAY SURGERY RN REGARDING PATIENT NOT HAVING AN EKG. EKG ORDER PLACED FOR PATIENT PRE OP.
--- NOTE | 2025-04-26 06:20 | NUR ---
SCHEDULED ABX PULLED TO ADMINISTER TO PATIENT. BEFORE INFUSING ABX, SURGERY RN CALLED MED SURG FLOOR AND SAID TO HOLD ABX DUE TO PATIENT HEADING TO SURGERY. SURGERY NURSE ON THE WAY TO GET PATIENT AT THIS TIME.
--- NOTE | 2025-04-26 06:26 | NUR ---
PATIENT OFF FLOOR WITH DAY SURGERY RN.
[2025-04-26] MEDS ORDERED: LIDOCAINE HCL 2% 20 ML MDV ONE (06:27)
[2025-04-26] MEDS ORDERED: Ropivacaine HCl 0.5% 30 ML VIAL ONE (06:27)
[2025-04-26] MEDS ORDERED: VANCOMYCIN HCL 500 MG VIAL ONE (06:27)
[2025-04-26] MEDS ORDERED: LIDOCAINE HCL 2% 5 ML SDV ONE (06:56)
[2025-04-26] MEDS ORDERED: FAMOTIDINE 20 MG/ 2 ML VIAL ONE (06:58)
[2025-04-26] MEDS ORDERED: fentaNYL citrate 100 MCG/2 ML VIAL ONE (07:02)
[2025-04-26] MEDS ORDERED: MIDAZOLAM HCL 2 MG/2 ML VIAL ONE (07:02)
--- NOTE | 2025-04-26 07:05 | NUR ---
RECIEVED SHIFT REPORT. PT IS CURRENTY OFF UNIT FOR SURGICAL PROCEDURE.
[2025-04-26] MEDS ORDERED: METOCLOPRAMIDE HCL 10 MG/2 ML SDV ONE (07:09)
[2025-04-26] MEDS ORDERED: KETOROLAC TROMETHAMINE 30 MG/ML VIAL IV PRN ×2 (08:00→13:30)
[2025-04-26] MEDS ORDERED: fentaNYL citrate 50 MCG/ML SDV IV PRN (08:00)
[2025-04-26] MEDS ORDERED: IBLOOD GLUCOSE TEST STRIP 1 EA TEST VI PRN (08:00)
[2025-04-26] MEDS ORDERED: NALOXONE HCL 0.4 MG SYR IV PRN (08:00)
--- NOTE | 2025-04-26 08:48 | NUR ---
04/26/25 0848 Alison Emmanuel 0814- PT PRESENTS TO PACU, SEMI BUSTAMANTE POSITION, DROWSY BUT ANSWERING QUESTIONS. LR INFUSING TO LAC, SALINE LOCK TO RFA WNL. O2 AT 6L PER MASK, BREATHING EVEN AND NON LABORED. ABD SOFT, NON DISTENDED. FOOT COLOR NORMAL FOR PT WITH CAP REFILL 1-2 SECS, PT REPORTS FOOT IS NUMB, DRESSING IN PLACE CDI. PT DENIES PAIN AND NAUSEA. 0824- PT RESTING INTERMITTENTLY, SATS 100% ON 6L PER MASK. MOVED TO ROOM AIR. 0827- XRAY AT BEDSIDE. 0835- DR HURTADO AT BEDSIDE TO DISCUSS FINDINGS, XRAYS REVIEWED. PT WAKES EASILY TO VERBAL STIMULI. 0845- PT WAKES EASILY TO VERBAL STIMULI, BREATHING EVEN AND NON LABORED. RESTING INTERMITTENTLY. DENIES PAIN AND NAUSEA.
--- NOTE | 2025-04-26 08:55 | NUR ---
PT ARRIVED TO [facility] FROM PACU. PT IS DROWSY, AROUSABLE. DENIES PAIN, REPORTS N/T. CPOX IN PLACE. LEFT FOOT IS ELEVATED ON PILLOWS, DRESSING IN PLACE, CDI. CALL LIGHT IN REACH.
--- NOTE | 2025-04-26 08:58 | NUR ---
PT IN PROCEDURE
--- NOTE | 2025-04-26 09:33 | NUR ---
RESTING IN BED WITH EYES CLOSED. ALLOWED TO REST FOR NOW.
--- NOTE | 2025-04-26 10:00 | NUR ---
PT REQUESTING TO USE URINAL. PT ABLE TO STAND AT THE BEDSIDE, IND, W/ FWW. FOOT BOOT IN PLACE, TOLERATED WELL. AM MEDICATIONS GIVEN, FRESH WATER, COFFEE, AND WARM BLANKET. CALL LIGHT IN REACH. NO COMPLAINTS AT THIS TIME.
--- NOTE | 2025-04-26 11:10 | NUR ---
PT IS SITTING ON THE SIDE OF THE BED, CALL LIGHT IN REACH. 8/10 PAIN IN THE LLE, PAIN MEDICATION GIVEN (PER EMAR).
--- NOTE | 2025-04-26 12:18 | NUR ---
IN ROOM TO GIVEN INSULIN. PT SITTING ON THE SIDE OF THE BED. COFFEE, MILK, AND CORETTA PROVIDED PER REQUEST. CALL LIGHT IN REACH.
--- NOTE | 2025-04-26 13:23 | NUR ---
PER MD PATIENT REQUESTING SOMETHING MORE FOR PAIN. ORDERS UPDATED PER MD, PRN TORADOL GIVEN FOR 7 PAIN TO LEFT FOOT, SEE MAR. PT REQUESTING BOOT TO BE REMOVED WHILE IN BED, THIS RN ASSISTED HELPING PT. IV FLUIDS INFUSING ORDERED AT 100ML/HR AT THIS TIME.
[2025-04-26] MEDS ORDERED: HYDROCODONE/APAP 10/325 1 TAB PO PRN (13:30)
--- NOTE | 2025-04-26 14:42 | NUR ---
VISITED DURING SPIRITUAL CARE ROUNDS. PT APPEARED TO BE SLEEPING. DID NOT DISTURB. PROVIDED PRAYER.
[2025-04-26] MEDS ORDERED: SEVOFLURANE 250 ML BTL INH ONE (14:58)
--- NOTE | 2025-04-26 14:59 | NUR ---
PT RESTING IN BED, EYES CLOSED. ABX STARTED AT THIS TIME. CPAP ON. CALL LIGHT IN REACH. LEGS ELEVATED.
--- NOTE | 2025-04-26 16:30 | NUR ---
PT SITTNG ON SIDE OF THE BED WATCHING TV. DENIES NEEDS. CALL LIGHT IN REACH
--- NOTE | 2025-04-26 16:41 | NUR ---
HPURRICHIE IRWIN. PATIENTIS SITTING ON THE EDGE OF THE BED, BLOOD GLUCOSE HAS BEEN CHECKED AND DOCUMENTED. NO REQUEST FROM PATIENT AT THIS TIME, HE REPORTS BEING READY FOR DINNER. CALL LIGHT PLACED WITHIN REACH
--- NOTE | 2025-04-26 18:03 | NUR ---
PT REQUESTING A DIFFERENT MASK FOR HIS CPAP. RT CALLED WILL COME TO PT.
[2025-04-26] MEDS ORDERED: IBUPROFEN 600 MG TAB PO PRN (18:15)
--- NOTE | 2025-04-26 18:37 | NUR ---
HOURLY ROUNDING. PATIENT IS IN BED CPAP ON. CALL LIGHT PLACED WITHIN REACH. EMPTIED PATIENT URINAL (400) DOCUMENTED. NO REQUEST FROM PATIENT AT THIS TIME
--- NOTE | 2025-04-26 18:42 | NUR ---
GAVE PT NASAL MASK TO TRY HE WEAR NASAL AT HOME
--- NOTE | 2025-04-26 19:51 | NUR ---
REPORT RECEIVED FROM DAY SHIFT RN. PATIENT RESTING IN BED WITH EYES CLOSED. RESPIRATIONS EVEN AND UNLABORED. CALL LIGHT IN REACH.
--- NOTE | 2025-04-26 20:31 | NUR ---
scd's alarming, issue resolved. pt reports 7/10 pain in left foot r/t surgical procedure, primary rn aware. call light in reach and pt denies additional needs or concerns.
--- NOTE | 2025-04-26 20:36 | NUR ---
RESIDENTIAL FEE APPRAISER OBTAINED BLOOD SUGAR, VITALS AND I&O. PT REQUESTING PAIN MEDS. RN NOTIFED. PT STATES NO FURTHER NEEDS AT THIS TIME. CALL LIGHT WITHIN REACH.
--- NOTE | 2025-04-26 20:54 | NUR ---
PATIENT RESTING IN BED. SCHEDULED MEDICATION ADMINISTERED. PATIENT REPORTING 7/10 LLE PAIN. PRN PAIN MEDICATION ADMINISTERED. LLE DRESSING C/D/I. LLE ELEVATED ON PILLOWS. PATIENT DENIES FURTHER NEEDS AT THIS TIME. CALL LIGHT IN REACH.
--- NOTE | 2025-04-26 21:52 | EKG ---
[facility] [address] [place] [address] Signed Sinus bradycardia Otherwise normal ECG When compared with ECG of 10-APR-2025 22:42, No significant change was found Confirmed by Keron Velásquez MD () on 04/26/2025 9:52:03 PM Electronically Signed By: KERON VELÁSQUEZ MD 04/26/252151 PATIENT NAME: GILBERT GAINES ELVA Electrocardiogram DATE OF : 80 PHYSICIAN: KERON VELÁSQUEZ MD REPORT #: [id number] REPORT IS CONFIDENTIAL AND NOT TO BE RELEASED WITHOUT AUTHORIZATION
--- NOTE | 2025-04-26 22:16 | NUR ---
PATIENT RESTING IN BED. SCHEDULED IV ABX INFUSING PER ORDER. NO FURTHER NEEDS. CALL LIGHT IN REACH.
[2025-04-27] VITALS (7 sets, daily range): BP systolic 112–136; BP diastolic 60–78
--- NOTE | 2025-04-27 00:03 | NUR ---
PATIENT RESTING IN BED WITH EYES CLOSED. RESPIRATIONS EVEN AND UNLABORED. CALL LIGHT IN REACH.
--- NOTE | 2025-04-27 01:18 | NUR ---
PATIENT RESTING IN BED WITH EYES CLOSED. RESPIRATIONS EVEN AND UNLABORED. PATIENT HAS NO FURTHER NEEDS. CALL LIGHT IN REACH.
--- NOTE | 2025-04-27 01:36 | NUR ---
PATIENT RESTING IN BED ON BACK WITH EYES CLOSED. VS AND I&Os OBTAINED AND RECORDED. PATIENT DENIES FURTHER NEEDS. CALL LIGHT IN REACH.
--- NOTE | 2025-04-27 04:11 | NUR ---
PATIENT RESTING IN BED ON BACK WITH EYES CLOSED. RESPIRATIONS EVEN AND UNLABORED. CALL LIGHT IN REACH.
[2025-04-27 05:21] LABS: BASOPHILS 0.8 % (0.2-1.2); EOSINOPHILS 1.6 % (0.8-7.0); LYMPHOCYTES 44.8 % (21.8-53.1); MCH 26.3 PG (25.7-32.2); MCHC 32.4 g/dL (32.3-36.5); MCV 81.2 fL (79.0-92.2); MONOCYTES 7.1 % (5.3-12.2); NEUTROPHILS 45.3 % (34.0-67.9); RBC 4.63 M/uL (4.63-6.08)
[2025-04-27 05:36] LABS: GLOMERULAR FILTRATION RATE,EST 112.0 mL/min (>60); UREA NITROGEN 11.0 mg/dL (7-18)
--- NOTE | 2025-04-27 05:43 | NUR ---
PATIENT RESTING IN BED. SCHEDULED IV ABX INFUSING PER ORDER. VS AND I&Os OBTAINED AND RECORDED. LLE DRESSING C/D/I. PATIENT DENIES FURTHER NEEDS AT THIS TIME. CALL LIGHT IN REACH.
--- NOTE | 2025-04-27 07:20 | NUR ---
RECIEVED REPORT FROM PAMELA STRATTON. DR. HURTADO AT THE BEDSIDE DOING DRESSING CHANGE, ASSISTANCE PROVIDED BY THIS RN. PT STATES NO CURRENT NEEDS. CALL LIGHT WITHIN REACH.
--- NOTE | 2025-04-27 07:46 | NUR ---
PATIENT IN BED AT THIS TIME. PATIENT REFUSED TO GET INTO CHIAR, PATIENT REQUESTED PAIN MEDICATIONS. PAMELA SPEARS NOTIFIED. FILM PRODUCER CHARTED BLOOD SUGAR. CALL LIGHT WITHIN REACH, NO FURTHER NEEDS.
--- NOTE | 2025-04-27 08:59 | NUR ---
PATIENT IN BED AT THIS TIME. BLASTING ENTRYMAN CHARTED VITALS AND I&O'S. CALL LIGHT WITHIN REACH, NO FURTHER NEEDS AT THIS TIME.
--- NOTE | 2025-04-27 09:37 | NUR ---
PT STATES PAIN IS "GETTING BETTER". PT DENIES ANY CURRENT NEEDS, CALL LIGHT WITHIN REACH.
--- NOTE | 2025-04-27 10:20 | NUR ---
PT LYING IN BED AWAKE, DR. VELÁSQUEZ AT THE BEDSIDE. MD STATES IS OKAY TO DC IV FLUID AT THIS TIME, IV SALINE LOCKED. PT STATES NO FURTHER NEEDS, CALL LIGHT WITHIN REACH.
--- NOTE | 2025-04-27 10:23 | NUR ---
INTO SEE PATIENT. PATIENT RESTING IN BED. TALKED WITH HIM ABOUT POTENTIALLY BEING D/C'D TODAY. LET HIM KNOW WE CAN GET HIM A TAXI IF NEEDED. PATIENT DENIES ANY NEEDS FROM CM.
[2025-04-27] MEDS ORDERED: HYDROCODON-ACE1 EAC8 PO (10:32)
[2025-04-27] MEDS ORDERED: CIPROFLOXACIN750 MG PO (10:35)
[2025-04-27] MEDS ORDERED: METRONIDAZOLE500 MG PO (10:36)
--- NOTE | 2025-04-27 11:39 | NUR ---
DC EDUCATION AND PACKET GIVEN TO PT, PT STATES ALL QUESTIONS HAVE BEEN ANSWERED. BOTH IVs DC'D WNL. PT STATES NO FURTHER NEEDS, WOOD PROCESSING WORKER IN ROOM ASSISTING PT TO SHOWER. CALL LIGHT WITHIN REACH.
--- NOTE | 2025-04-27 12:44 | NUR ---
PATIENT IN BED AT THIS TIME. HYDRAULIC PRESS TENDER GOT SHOWER READY FOR PATIENT, PATIENT ABLE TO SHOWER INDEPENDENTLY. CALL LIGHT WITHIN REACH, NO FURTHER NEEDS AT THIS TIME.
--- NOTE | 2025-04-27 13:25 | NUR ---
VISITED DURING SPIRITUAL CARE ROUNDS. PT APPEARED TO BE SLEEPING. DID NOT DISTURB. PROVIDED PRAYER.
--- NOTE | 2025-04-27 13:40 | NUR ---
THIS RN TO BEDSIDE TO COMPLETE DRESSING CHANGE AFTER PT SHOWER PER MD ORDER. SMALL AMOUNT OF RED DRAINAGE DRAINING FROM WOUND TO FLOOR. CURRENT DRESSING REMOVED, RED DRAINAGE OOZING FROM SURGICAL WOUND. PRESSURE HELD TO WOUND FOR >5 MINUTES, OOZING CONTINUES. THIS RN CALLS DR. HURTADO TO UPDATE, DR. HURTADO STATES TO PLACE NEW DRESSING PER ORDER AND ELEVATE PT'S LLE FOR ONE HOUR. MD STATES TO CONTACT IF DRAINAGE COMES THROUGH DRESSING IN HOUR. MD STATES PT CAN DC IF DRAINAGE DOES NOT COME THROUGH DRESSING IN HOUR. NO NEW ORDERS AT THIS TIME. PT UPDATED, STATES HE IS AGREEABLE TO PLAN. NEW DRESSING OF XEROFORM, FLUFFY GAUZE, STERILE GAUZE, ABD PAD, KERLIX AND COBAN PLACED. LLE ELEVATED ON PILLOWS WITH PT LYING IN BED. VISITOR AT THE BEDSIDE. PT STATES NO FURTHER NEEDS AT THIS TIME, CALL LIGHT WITHIN REACH.
--- NOTE | 2025-04-27 14:35 | NUR ---
PATIENT IN BED AT THIS TIME. GARAGE MECHANIC CHARTED VITALS AND I&O'S. CALL LIGHT WITHIN REACH, NO FURTHER NEEDS AT THIS TIME.
--- NOTE | 2025-04-27 14:45 | NUR ---
DR. HURTADO AT BEDSIDE ASSESSING WOUND AND REPLACING DRESSING, ASSISTANCE PROVIDED TO . MD STATES PT IS TO ELEVATE LLE FOR ONE HOUR AND THEN DC. NO NEW ORDERS AT THIS TIME. PT STATES NO FURTHER NEEDS AT THIS TIME, CALL LIGHT WITHIN REACH.
--- NOTE | 2025-04-27 15:44 | NUR ---
DRESSING TO THE LEFT LOWER EXTREMITY REMAINS ELEVATED ON A COUPLE PILLOWS. DRESSING IS CLEAN, DRY, AND INTACT. MICHELLE RICCI IS IN THE ROOM AT THIS TIME AND GETTING DISCHARGE VITAL SIGNS. PATIENT WITH EYES OPEN AND RESPIRATIONS ARE EVEN AND UNLABORED. PATIENT STATED NO FURTHER NEEDS AT THIS TIME. CALL LIGHT AND PERSONAL BELONGINGS ARE WITHIN REACH.
--- NOTE | 2025-05-01 09:44 | OR ---
[facility] [address], [place] [address] Signed DATE OF OPERATION: 04/26/2025 SURGEON: Gabino Palma DPM PREOPERATIVE DIAGNOSIS: Osteomyelitis, left second metatarsal and left second digit. POSTOPERATIVE DIAGNOSIS: Osteomyelitis, left second metatarsal and left second digit. PROCEDURE: Amputation of left second digit and debridement of second metatarsal. MANAGER OF INVESTIGATIONS: Yosi Choi DPM ANESTHESIA PROVIDER: Russ Hill CRNA. ANESTHESIA: Local with MAC. Local consisted of 1:1 mix of 0.5% Ropivacaine plain and 2% lidocaine plain. A total of 15 mL was utilized. HEMOSTASIS: With an ankle tourniquet. ESTIMATED BLOOD LOSS: Less than 5 mL or minimal. MATERIALS USED: 2-0 nylon and 3-0 nylon. PROCEDURE IN DETAIL: The patient was brought into the operating room and placed upon the operating table in the supine position. Local anesthesia was administered around the patient's left ankle and midfoot region. The patient's left foot was then scrubbed, prepped and draped in the usual sterile technique. An Esmarch bandage was wrapped around the patient's left foot to exsanguinate and left wrapped around the patient's ankle for hemostasis. Attention was then directed to the dorsal aspect of the patient's left foot where 2 semi-elliptical incisions measuring approximately 6 cm in length each were performed Electronically Signed By: GABINO PALMA DPM 04/27/25 0911 PATIENT NAME: GILBERT GAINES OPERATIVE REPORT DATE OF : 80 REPORT #: [id number] PHYSICIAN: GABINO PALMA DPM PCP: PAIGE VERGARA PA-C REPORT IS CONFIDENTIAL AND NOT TO BE RELEASED WITHOUT AUTHORIZATION [facility] [address], [place] [address] Signed each of the semi-elliptical incisions and with around the circumference of the base of the second digit at the level of the metatarsophalangeal joint and then extended dorsally on to the second metatarsal to approximate the diaphyseal region. The incision was then deepened through the soft tissue utilizing a #64 blade, this was down to bone. Joint capsule was then released around the metatarsal head as well as tendon attachments and the second digit was removed in its entirety from the surgical field. Ulceration at this point revealed small semi-turbid pockets of drainage mostly on the dorsal aspect. Culture and swab were utilized and this was sent to the lab for microanalysis, however, the general appearance was that the bacterial infection was pretty well controlled with only remnants of remaining active infection. The surrounding tissue around the second metatarsal head had areas of necrosis and damage. The head of the metatarsal was also identified to be softened and compromised structurally. A bone probe was utilized in the metaphyseal region and the metatarsal was found to be solid. Sagittal saw was then utilized to resect the head of the metatarsal bone and this area was found to be solid and the medullary bone also appeared to be healthy and viable. The head of the second metatarsal was sent to pathology as well as the second digit. Rongeur was then utilized to debride necrotic soft tissue. #64 blade and forceps were utilized to resect joint capsule, tendon and other avascular tissue. Some of the infection was noted to extend laterally almost into the third metatarsal region, however, this appears to be spared. Upon completion of debridement of the areas surrounding the second metatarsal, the area was flushed with copious amounts of sterile normal saline. Antibacterial beads were then placed, which were comprised of calcium sulfate mixed with vancomycin. The surgical site was then closed utilizing 2-0 nylon, the horizontal mattress ends in simple interrupted suture technique. 3-0 nylon was also utilized in the simple interrupted stitch to help close the wound. The plantar ulcer was left open to accommodate drainage. This should heal in nicely secondarily. Postoperative dressing was Adaptic, Betadine soaked gauze, fluff gauze, ABD pad. Emelyn was then applied followed by Coban wrap. Ankle tourniquet was removed. Prompt hyperemic response was noted to the patient's remaining digits of the left foot. The patient was then escorted to the recovery area with vital signs stable. The patient had tolerated both the procedure and the anesthesia well. The patient is to be readmitted to the General Medicine floor for continued IV antibiotics and to recover from the surgery. Correlation with the hospitalist was also performed. Gabino Palma DPM TM/MODL /[id number] Electronically Signed By: GABINO PALMA DPM 04/27/25 0911 PATIENT NAME: GILBERT GAINES OPERATIVE REPORT DATE OF : 80 REPORT #: [id number] PHYSICIAN: GABINO PALMA DPM PCP: PAIGE VERGARA PA-C REPORT IS CONFIDENTIAL AND NOT TO BE RELEASED WITHOUT AUTHORIZATION [address] [place], [place] [address] Signed Copies: ~ Electronically Signed By: GABINO PALMA DPM 04/27/25 0911 PATIENT NAME: EDERGILBERTSHALINI STEVENSON OPERATIVE REPORT DATE OF : 80 REPORT #: [id number] PHYSICIAN: GABINO PALMA DPM PCP: PAIGE VERGARA PA-C REPORT IS CONFIDENTIAL AND NOT TO BE RELEASED WITHOUT AUTHORIZATION
--- NOTE | 2025-05-01 12:37 | PATH ---
[facility] [address] [place], [place] [address] Signed SPECIMEN(S): A LEFT 2ND TOE AND METATARSAL HEAD SPECIMEN SOURCE: A. LEFT 2ND TOE AND METATARSAL HEAD CLINICAL HISTORY: Osteomyelitis. FINAL PATHOLOGIC DIAGNOSIS: Left second toe and metatarsal head, amputation: - Skin mummification and acute ulceration extending into underlying soft tissue with abscess formation. - Underlying bone with chronic inflammation and reactive remodeling. - Soft tissue margin, positive for acute inflammation. - Proximal bone margin negative for inflammation. NA MICROSCOPIC EXAMINATION: Histologic sections of all submitted blocks are examined by light microscopy. These findings, together with the gross examination, support the pathologic diagnosis. GROSS DESCRIPTION: The specimen, labeled and designated "Roe Gamino, " and designated on the requisition "left second toe and metatarsal head," is received in formalin and consists of 7.6 x 4.5 x 3.2 cm disarticulated toe. The skin surface is pale pink-anderson with moderate skin slippage that extends to the resection margin. The resection margin displays a pink-white dense rubbery fibrous tissue overlying the articulating surface. The margin is inked blue. The medial aspect of the toe displays a 0.6 x 0.5 cm area of black discoloration that is 0.6 cm from the skin and soft tissue resection margin. Sectioning through the area reveals extension into the underlying soft tissue and a anderson-white discoloration of the adjacent resection margin. The underlying bone is pink-west and firm. Separate within the container is a 2.2 x 1.9 x 1.4 cm amputated distal metatarsal head. The resection margin is inked green. The articulating surface is west-white and smooth with one area of disruption and roughening. Sectioning reveals a yellow firm underlying bone. Pharmacy Service Associate sections are submitted in four cassettes. PATIENT NAME: GILBERT GAMINO PATHOLOGY DATE OF : 80 REPORT #: [id number] PHYSICIAN: FRANCINE PATHOLOGY PCP: PAIGE VERGARA PA-C REPORT IS CONFIDENTIAL AND NOT TO BE RELEASED WITHOUT AUTHORIZATION [facility] [address], [place] [address] Signed Cassette Summary: (A1-A2) area of discoloration to soft tissue resection margin and articulating surface at bone resection margin with overlying fibrous tissue (margin inked blue) (Cassette placed into Decal Stat prior to processing.) (A3) metatarsal articulating surface and bone resection margin, shave (Cassette placed into Decal Stat prior to processing.) FB (under the direct supervision of a pathologist) The Gross Description was prepared using a voice recognition system. The report was reviewed for accuracy; however, sound-alike word errors, addition and/or deletions may occur. If there is any question about this report, please contact Client Services. ADDITIONAL NOTES: Immunohistochemical and/or in situ hybridization studies if performed in this case included appropriate positive controls that reacted as expected. This test was developed and its performance characteristics determined by [facility]. It has not been cleared or approved by the U.S. Food and Drug Administration. The FDA has determined that such clearance or approval is not necessary. This test is used for clinical purposes. It should not be regarded as investigational or for research. [facility] is certified under the Clinical Laboratory Improvement Amendments of 1988 (CLIA) as qualified to perform high complexity clinical laboratory testing. PERFORMING LABORATORY: Technical component was performed by [facility], [address] [place] [id number] (CLIA# [id number]). Professional interpretation was performed by [facility], [address] [place] [address] (CLIA#: [id number]). Diagnostician: Neeraj Samayoa MD Pathologist Electronically Signed 05/01/2025 Copies: ~ PATIENT NAME: GILBERT GAMINO PATHOLOGY DATE OF : 80 REPORT #: [id number] PHYSICIAN: FRANCINE PATHOLOGY PCP: PAIGE VERGARA PA-C REPORT IS CONFIDENTIAL AND NOT TO BE RELEASED WITHOUT AUTHORIZATION
== END 2025-04-27 16:15 | disposition home or self-care (01) | DRG 617 ==
LOC: ED 02:27 → MS 06:49
PROVIDERS: Internal Medicine; Podiatrist Foot & Ankle Surgery; ADMIT Student in an Organized Health Care Education/Training Program; ATTEND Family Medicine
PROC: 5A09357 Assistance with Respiratory Ventilation, Less than 24 Consecutive Hours, Continuous Positive Airway Pressure (ICD-10-PCS; 2025-04-23)
PROC: 3E03329 Introduction of Other Anti-infective into Peripheral Vein, Percutaneous Approach (ICD-10-PCS; 2025-04-23)
PROC: 0J9R0ZZ Drainage of Left Foot Subcutaneous Tissue and Fascia, Open Approach (ICD-10-PCS; 2025-04-23)
PROC: 0JDR0ZZ Extraction of Left Foot Subcutaneous Tissue and Fascia, Open Approach (ICD-10-PCS; 2025-04-24)
PROC: 0Y6N0ZB Detachment at Left Foot, Partial 2nd Ray, Open Approach (ICD-10-PCS; principal; 2025-04-26 07:30)
DX: E11.69 Type 2 diabetes mellitus with other specified complication (principal); E11.52 Type 2 diabetes mellitus with diabetic peripheral angiopathy with gangrene; E87.1 Hypo-osmolality and hyponatremia; Z16.29 Resistance to other single specified antibiotic; Z68.42 Body mass index [BMI] 45.0-49.9, adult; L03.116 Cellulitis of left lower limb; M86.172 Other acute osteomyelitis, left ankle and foot; L97.424 Non-pressure chronic ulcer of left heel and midfoot with necrosis of bone; L02.612 Cutaneous abscess of left foot; I10 Essential (primary) hypertension; G47.33 Obstructive sleep apnea (adult) (pediatric); Z66 Do not resuscitate; B95.7 Other staphylococcus as the cause of diseases classified elsewhere; E78.00 Pure hypercholesterolemia, unspecified; J45.909 Unspecified asthma, uncomplicated; K21.9 Gastro-esophageal reflux disease without esophagitis; E11.621 Type 2 diabetes mellitus with foot ulcer; E66.813 Obesity, class 3; E11.40 Type 2 diabetes mellitus with diabetic neuropathy, unspecified; F15.10 Other stimulant abuse, uncomplicated; F39 Unspecified mood [affective] disorder; Z86.718 Personal history of other venous thrombosis and embolism; Z86.711 Personal history of pulmonary embolism; Z79.84 Long term (current) use of oral hypoglycemic drugs; Z79.01 Long term (current) use of anticoagulants
CPT/HCPCS: 01480; 36415; 73630; 73721; 80048; 80053; 80307; 81003; 83036; 83605; 83735; 85025; 85651; 86140; 87040; 87070; 87075; 87077; 87186; 87205; 88307; 88311; 93005; 93010; 93971; 94660; 94762; 94799; 97161; 97165; A9270; C1713; J0878; J1650; J1815; J1885; J2003; J2250; J2405; J2543; J2704; J2765; J2795; J3010; J3370; J7030

== ENCOUNTER 2025-06-05 02:41 | Inpatient (IN) | payer OTHER ==
[2025-06-05] VITALS (7 sets, daily range): BP systolic 122–145; BP diastolic 66–103
[~2025-06-05] VITALS: Ht 193 cm; Wt 171.7 kg
[~2025-06-05 02:41] MED LIST changes: +CIPROFLOXACIN750 MG PO; +LAMOTRIGINE200 MG PO; +LIRAGLUTID0.6 MG/0.1 SUB-Q; +METRONIDAZOLE500 MG PO; +VENLAFAXINE HCL75 M1 PO
[2025-06-05] MEDS ORDERED: PIPERACILLIN/TAZOBACTAM 4.5 GM in SODIUM CHLORIDE 0.9% 100 ML IV ONE (03:15)
[2025-06-05] MEDS ORDERED: HYDROmorphone HCL 1 MG/ML SYR IV ONE (03:15)
[2025-06-05 03:42] LABS: BASOPHILS 0.6 % (0.2-1.2); EOSINOPHILS 0 % (0.8-7.0); LYMPHOCYTES 19.3 % (21.8-53.1); MCH 26.8 PG (25.7-32.2); MCHC 33.7 g/dL (32.3-36.5); MCV 79.6 fL (79.0-92.2); MONOCYTES 7.0 % (5.3-12.2); NEUTROPHILS 72.6 % (34.0-67.9); RBC 5.00 M/uL (4.63-6.08)
[2025-06-05 04:01] LABS: LACTIC ACID, BLOOD 1.0 mmol/L (0.4-2.0)
[2025-06-05 04:07] LABS: ALT (SGPT) 22.0 U/L (14-59); AST (SGOT) 19.0 U/L (15-37); GLOMERULAR FILTRATION RATE,EST 113.0 mL/min (>60); PROTEIN, TOTAL 7.9 g/dL (6.4-8.2); UREA NITROGEN 12.0 mg/dL (7-18)
[2025-06-05 04:27] LABS: BLOOD/HGB, URINE NEGATIVE (Negative); KETONE, URINE NEGATIVE (Negative); LEUK ESTERASE, URINE NEGATIVE (negative); NITRITE, URINE NEGATIVE (negative)
[2025-06-05 04:46] LABS: AMPHETAMINES, URINE POSITIVE (NEGATIVE); BARBITURATES, URINE NEGATIVE (NEGATIVE); BENZODIAZEPINE, URINE NEGATIVE (NEGATIVE); CANNABINOID, URINE POSITIVE (NEGATIVE); COCAINE, URINE NEGATIVE (NEGATIVE); ECSTASY, URINE POSITIVE (NEGATIVE); FENTANYL, URINE NEGATIVE (NEGATIVE); METHADONE, URINE NEGATIVE (NEGATIVE); OPIATES, URINE NEGATIVE (NEGATIVE); OXYCODONE, URINE NEGATIVE (NEGATIVE); PHENCYCLIDINE, URINE NEGATIVE (NEGATIVE)
[2025-06-05] MEDS ORDERED: ACETAMINOPHEN 325 MG TAB PO PRN ×2 (05:30→09:30)
[2025-06-05] MEDS ORDERED: LACTATED RINGER'S 1,000 ML IV SCH (05:30)
[2025-06-05] MEDS ORDERED: MORPHINE SULFATE 4 MG/ML VIAL IV PRN (05:30)
[2025-06-05] MEDS ORDERED: DAPTOmycin 500 MG/10 ML VIAL IV ONE (05:30)
[2025-06-05] MEDS ORDERED: FAMOTIDINE 20 MG/ 2 ML VIAL IV ONE (05:45)
--- NOTE | 2025-06-05 07:17 | NUR ---
REPORT FROM DILLON SANTIAGO.
--- NOTE | 2025-06-05 08:43 | NUR ---
MORNING ASSESSMENT IS COMPLETE. 4MG OF IV MORPHINE GIVEN FOR 7/10 LEFT LOWER EXTREMITY PAIN. LEFT FOOT IS COVERED IN DRESSING: ADAPTIC, GUAZE, COBAN, SURGICAL BOOT. REDNESS NOTED TO JONES AND CALF AREA, 1+ EDEMA. PATIENT IS CURRENTLY ELEVATING LEFT LEG ON 2 PILLOWS. ANTIBIOTIC OINTMENT GIVEN FOR 2 "SPIDER BITES" TO INSIDE OF LEFT KNEE. NO OTHER NEEDS AT THIS TIME.
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
[2025-06-05] MEDS ORDERED: DEXTROSE 5% 1,000 ML IV PRN (09:30)
[2025-06-05] MEDS ORDERED: PANTOPRAZOLE SODIUM 40 MG TABEC PO SCH (09:30)
[2025-06-05] MEDS ORDERED: VENLAFAXINE HCL 75 MG CAPCR PO SCH ×2 (09:30→09:31)
[2025-06-05] MEDS ORDERED: lamoTRIgine 100 MG TAB PO SCH (09:30)
[2025-06-05] MEDS ORDERED: DEXTROSE 50% 50 ML SYR IV PRN ×2 (09:30)
[2025-06-05] MEDS ORDERED: IBLOOD GLUCOSE TEST STRIP 1 EA TEST XX PRN (09:30)
[2025-06-05] MEDS ORDERED: GLUCAGON,HUMAN RECOMBINANT 1 MG/ML VIAL SUB-Q PRN (09:30)
[2025-06-05] MEDS ORDERED: OXYCODONE HCL 5 MG TAB PO PRN (09:45)
--- NOTE | 2025-06-05 09:56 | NUR ---
PATIENT GIVEN SCHEDULED MORNING MEDICATIONS.
--- NOTE | 2025-06-05 10:00 | NUR ---
PATIENT GIVEN 5MG OF OXYCODONE AND 650MG OF TYLENOL.
--- NOTE | 2025-06-05 11:28 | NUR ---
ISHA REPORTS PAIN IS 4/10 AFTER PAIN MEDICATION.
[2025-06-05] MEDS ORDERED: PHARMACY RENAL DOSE ADJUSTMENT 1 DOSE MISC PO SCH (12:00)
[2025-06-05] MEDS ORDERED: IBLOOD GLUCOSE TEST STRIP 1 EA TEST XX SCH (12:00)
[2025-06-05] MEDS ORDERED: INSULIN LISPRO 100 UNIT/ML ML SUB-Q SCH (12:00)
--- NOTE | 2025-06-05 13:02 | NUR ---
medications reconciled using pharmacy records and patient interview
--- NOTE | 2025-06-05 13:53 | NUR ---
IV ZOSYN INFUSING FOR 4 HOURS. PATIENT SITTING AT BEDSIDE. NEXT PAIN MEDICATION IS DUE AT 3:30
[2025-06-05] MEDS ORDERED: PIPERACILLIN/TAZOBACTAM 4.5 GM in SODIUM CHLORIDE 0.9% 100 ML IV SCH (14:00)
--- NOTE | 2025-06-05 14:52 | NUR ---
PATIENT CURRENTLY RESTING IN BED LOOKING AT HIS PHONE. DENIES ANY CONCERNS OR NEEDS AT THIS TIME. CALL LIGHT WITHIN REACH.
[2025-06-05] MEDS ORDERED: PROPRANOLOL HCL 10 MG TAB PO SCH (15:00)
--- NOTE | 2025-06-05 15:38 | NUR ---
PATIENT GIVEN SCHEDULED MEDICATIONS, 5MG OXYCODONE AND TYLENOL FOR 6/10 LEFT FOOT PAIN.
--- NOTE | 2025-06-05 17:16 | NUR ---
DR. GOOD IN TO SEE PATIENT.
--- NOTE | 2025-06-05 17:34 | NUR ---
DR. GOOD IN TO SEE PATIENT. LEFT FOOT CULTURES/GRAM STAIN SAMPLE SENT TO LAB. LEFT FOOT DRESSING DONE BY DR. GOOD IS IODOFLEX, GUAZE, GUSHIRAE WRAP, COBAN, SURGICAL. PATIENT TOLERATED WELL. PATIENT REQUESTS TO HAVE HOSPITAL CPAP FOR TONIGHT.
--- NOTE | 2025-06-05 18:48 | NUR ---
PATIENT RESTING IN BED WITH EYES CLOSED. RESPIRATIONS EVEN AND UNLABORED. CALL LIGHT WITHIN REACH.
--- NOTE | 2025-06-05 20:12 | NUR ---
LAB CALLED AND REPORTED WE HAVE WOUND CULTURES AND THE CULTURE FOR GRAM STAIN NEEDS TO BE IN GREEN CULTURE, THEY ARE ABLE TO RUN THE AEROBIC/ANAEROBIC CULTURES FROM THE CURRENT SWAB. CALL TO MD TO VERIFY IF HE WOULD LIKE ME TO COLLECT A NEW SWAB FOR THE GRAM STAIN, PER MD - CANCEL GRAM STAIN ORDER. WILL JUST AWAIT CULTURES. LAB NOTIFIED AND ORDERS CANCELLED PER MD.
--- NOTE | 2025-06-05 23:36 | NUR ---
PT RESTING WITH EYES CLOSED, CPAP IN PLACE AT THIS TIME. ALLOWED TO REST, CALL LIGHT WITHIN REACH. NO PATIENT CARE NEEDS MET AT THIS TIME.
[2025-06-06] VITALS (12 sets, daily range): BP systolic 110–137; BP diastolic 55–94
--- NOTE | 2025-06-06 | NUR ---
Pt report received from PAMELA Hurtado.
--- NOTE | 2025-06-06 00:15 | NUR ---
In with pt after advised by PAMELA Perez that she saline locked his IV. Advised by PAMELA Chaparro that she started the 4hr infusion at about 2130 hours, so there should still be some time left on the infusion. Pt was in the bathroom. I updated the white board and waited for him to exit the bathroom. Ana had also brought the pt a sandwhich box, which was waiting for him on the bedside table. As the pt exited the bathroom, I introduced myself and advised him that there is still a little over an hour left on the infusion of antibiotics. He verbalized understanding. I noted that the volume infused was stopped at about 62ml out of 100ml. I flushed the IV, pt had no c/o pain, no redness, swelling or leaking noted. Zosyn was restarted with approximately 45ml left to infuse. Advised the scrap charger, Cindy Little that the med was stopped, but restarted. Pt denied further needs at this time.
[2025-06-06 05:45] LABS: GLOMERULAR FILTRATION RATE,EST 113.0 mL/min (>60); UREA NITROGEN 14.0 mg/dL (7-18)
[2025-06-06 05:51] LABS: BASOPHILS 0.7 % (0.2-1.2); EOSINOPHILS 0 % (0.8-7.0); LYMPHOCYTES 27.8 % (21.8-53.1); MCH 26.7 PG (25.7-32.2); MCHC 33.0 g/dL (32.3-36.5); MCV 80.9 fL (79.0-92.2); MONOCYTES 8.5 % (5.3-12.2); NEUTROPHILS 62.5 % (34.0-67.9); RBC 4.50 M/uL (4.63-6.08)
[2025-06-06] MEDS ORDERED: DAPTOmycin 500 MG/10 ML VIAL IV ONE (06:00)
--- NOTE | 2025-06-06 06:54 | NUR ---
In with pt in response to call light for request for a pillow. This was brought to him. Pt denies further needs at this time.
--- NOTE | 2025-06-06 07:41 | NUR ---
MORNING REPORT RECIEVED FROM PAMELA HOLLY. PT SITTING UP IN BED, WITH EYES CLOSED CHEST RISE EQUAL BILAT, PT HAS CALL LIGHT IN REACH IF NEEDED AT THIS TIME.
--- NOTE | 2025-06-06 08:37 | NUR ---
PATIENT IN BED RESTING. BLOOD SUGAR TAKEN AND RN NOTIFIED OF RESULTS. PATIENT REFUSED AM CARE AND TO GET UP TO CHAIR AT THIS TIME. CALL LIGHT IN REACH. NO FURTHER NEEDS AT THIS TIME.
--- NOTE | 2025-06-06 09:51 | NUR ---
UR CLINICAL REVIEW: DHARA, MEETS INPT FOR OSTEOMYELITIS CULTURES PENDING, XRAY SHOWS WORSENING OSTEOMYELITIS IV ANTIBIOTICS [facility] IN[facility] 06/05/2025 @ 0925 ORDER MATCHES REG AUTH PENDING, WILL SEND CLINICALS PLAN TO DC TO HOME WHEN MEDICALLY READY 06/10/2025
--- NOTE | 2025-06-06 09:55 | NUR ---
PT LAYING IN BED WITH EYES CLOSED CHEST RISE EQUAL BILAT, PT REQUESTED A SHOWER ONCE ABX ARE INFUSED. PT HAS NO CONCERNS AND HAS CALL LIGHT IN REACH.
[2025-06-06] MEDS ORDERED: APIXABAN 5 MG TAB PO SCH (10:10)
--- NOTE | 2025-06-06 10:43 | NUR ---
IN TO DO VITALS AND I&O'S, DONE AND CHARTED. PATIENT UP TO SHOWER, SBA. INDEPENDENT IN SHOWER. AM CARE, ORAL CARE, SHOWER SUPPLIES PROVIDED. LINENS CHANGED. CALL LIGHT IN REACH. NO FURTHER NEEDS AT THIS TIME.
--- NOTE | 2025-06-06 10:45 | NUR ---
PT SITTING UP ON EDGE OF BED, DENIES ANY NEEDS AND HAS CALL LIGHT IN REACH CURRENTLY.
--- NOTE | 2025-06-06 13:22 | NUR ---
PT LAYING IN BED AWAKE AND ALERT AT THIS TIME, PT COMPLAINED OF PAIN 7-10 AND WAS GIVEN PRN OXY 5M (SEE EAMR). PT ROOM ALSO PICKED UP AND HAS NO OTHER CONCERNS CALL LIGHT IN REACH CURRENTLY IF NEEDED.
--- NOTE | 2025-06-06 13:40 | NUR ---
Stopped and spoke with Arnie. He denies needs. He showered today and wants to take a nap. He asks for pain pills and I passed this on to his nurse, Ulises. Per note from Dr. Choi, he obtained a culture with dressing change last night. Will await culture before dc.
--- NOTE | 2025-06-06 14:13 | NUR ---
PT LAYING IN BED AWAKE AND ALERT WITH NO CURRENT CONCERNS, PT DENIES ANY NEEDS AND HAS CALL LIGHT IN REACH CURRENTLY.
--- NOTE | 2025-06-06 15:09 | NUR ---
PT SITTING UP IN BED, PT AWAKE AND ALERT, PT STATES " THEY ARE COMFORTABLE AND NO NEEDS". PT HAS CALL LIGHT IN REACH IF NEEDED.
--- NOTE | 2025-06-06 17:14 | NUR ---
PATIENT IS SITTING UP AT BEDSIDE TO EAT DINNER. BLOOD GLUCOSE IS 102 AND REQUIRES NO INSULIN.
--- NOTE | 2025-06-06 17:47 | NUR ---
PATIENT IN BED WATCHING TV AT THIS TIME. VITALS AND I&O'S DONE AND CHARTED. CALL LIGHT IN REACH. NO FURTHER NEEDS AT THIS TIME. FRESH WATER GIVEN.
--- NOTE | 2025-06-06 18:01 | NUR ---
PT LAYING IN BED WITH EYES CLOSED CHEST RISE EQUAL BILAT, PT EASILY AWAKENS AND HAS CALL LIGHT IN REACH IF NEEDED.
--- NOTE | 2025-06-06 19:27 | NUR ---
RECEIVED REPORT. PT RESTING IN BED WITH CPAP MACHINE ON AND EYES CLOSED, RISE AND FALL OF CHEST OBSERVED.C ALL LIGHT IN REACH
--- NOTE | 2025-06-06 21:13 | NUR ---
VITALS, ASSESSMENT, EVENING MEDS. PT BG 89. GIVEN PRN OXYCODONE 5MG 04/27 PAIN. NO OTHER NEEDS PRESENTLY, CALL LIGHT INREACH
--- NOTE | 2025-06-06 21:50 | NUR ---
RESPONDED TO BEEPING IV. PT REPOSITIONED ARM, THEN RESTARTED IV. NO NEEDS, CALL [facility]
--- NOTE | 2025-06-06 23:22 | NUR ---
PT ALERT, ON EDGE OF BED. PROVIDED APPLE SAUCE ON REQUEST. NO OTHER NEEDS, CALL [facility]
[2025-06-07] VITALS (10 sets, daily range): BP systolic 107–148; BP diastolic 55–95
--- NOTE | 2025-06-07 03:18 | NUR ---
RESPONDED TO BEEPING IV, ABX COMPLETE. EMPTIED URINAL. REFRESHED ICE WATER AND DIET CRANBERRY JUICE. NO OTHER NEEDS, CALL LIGHT INREACH
[2025-06-07 05:37] LABS: BASOPHILS 1.0 % (0.2-1.2); EOSINOPHILS 2.8 % (0.8-7.0); LYMPHOCYTES 38.9 % (21.8-53.1); MCH 27.1 PG (25.7-32.2); MCHC 33.2 g/dL (32.3-36.5); MCV 81.4 fL (79.0-92.2); MONOCYTES 8.9 % (5.3-12.2); NEUTROPHILS 48.0 % (34.0-67.9); RBC 4.58 M/uL (4.63-6.08)
--- NOTE | 2025-06-07 05:47 | NUR ---
VITALS, AM MEDS. REFILLED ICE WATER. AM ASSESSMENT. NO OTHER NEEDS, CALL LIGHT INREACH
[2025-06-07 05:53] LABS: GLOMERULAR FILTRATION RATE,EST 115.0 mL/min (>60); UREA NITROGEN 13.0 mg/dL (7-18)
--- NOTE | 2025-06-07 07:29 | NUR ---
MORNING REPORT RECIEVED FROM PAMELA LAUREN. PT LAYING IN BED WITH EES CLOSED CHEST RISE EQUAL BILAT. PT HAS CPAP ON AND HAS CALL LIGHT IN REACH IF NEEDED.
[2025-06-07] MEDS ORDERED: DAPTOmycin 500 MG/10 ML VIAL IV SCH (09:00)
--- NOTE | 2025-06-07 09:15 | NUR ---
Spoke with Arnie. He is resting in bed. Updated from AM meeting and Dr. Choi notes. Currently waiting on pending cultures. Per notes pt will most like go home on po antibiotics. Pt states this is his understanding also. I offered him word searches and coloring books. Pt declined as he believe he will sleep.
--- NOTE | 2025-06-07 10:14 | NUR ---
PT LAYING IN BED WATCHING TV, PT HAS NO CURRENT CONCERNS AND DENIES PAIN INTERVENTIONS AT THIS TIME, PT HAS CALL LIGHT IN REACH.
--- NOTE | 2025-06-07 10:40 | NUR ---
VISITED DURING SPIRITUAL CARE ROUNDS. PT APPEARED TO BE SLEEPING. DID NOT DISTURB. PROVIDED PRAYER.
--- NOTE | 2025-06-07 11:08 | NUR ---
DR. GOOD IN TO SEE PATIENT. CALL TO LAB, NO RESULTS AVAILABLE FOR LEFT FOOT WOUND CULTURE FROM 06/05/25 AT THIS TIME.
--- NOTE | 2025-06-07 13:57 | NUR ---
PT LAYING IN BED, PT HAS CALL LIGHT IN REACH. PT STATES THEY HAVE NO CURRENT CONCERNS AT THIS TIME AND DENIY PAIN INTERVENTIONS CURRENTLY.
--- NOTE | 2025-06-07 15:08 | NUR ---
PT SITTING UP ON EDGE OF BED, PT HAS NO NEEDS AT THIS TIME AND HAS CALL LIGHT IN REACH, PT CONTINUES TO BE INDEPENDENT IN ROOM AND TOLERATING WELL. PT HAS CALL LIGHT IN REACH.
--- NOTE | 2025-06-07 16:15 | NUR ---
PT LAYING IN BED WITH EYES CLOSED CHEST RISE EQUAL BILAT, CPAP IN PLACE. PT HAS CALL LIGHT IN REACH IF NEEDED.
--- NOTE | 2025-06-07 17:52 | NUR ---
PT SITTING UP ON EDGE OF BED TALKING WITH A VISITOR, PT ASKED ABOUT CULTURES AND WAS TOLD THAT THE CULTURES ARE STILL PENDING PT AGREEABLE AND HAS NO OTHER CONCERNS AT THIS TIME CALL LIGHT IN REACH.
--- NOTE | 2025-06-07 19:15 | NUR ---
REPORT RECEIVED FROM MARSHA SANTIAGO. pt RESTING IN THE BED. BOARD UPDATED. pt DENIES ANY OTHER NEEDS AT THIS TIME. CALL LIGHT WITHIN REACH.
--- NOTE | 2025-06-07 20:49 | NUR ---
CADASTRAL SURVEYOR OBTAINED VITALS AND I&O. PT STATES NO NEEDS AT THIS TIME. CALL LIGHT WITHIN REACH.
--- NOTE | 2025-06-07 22:15 | NUR ---
ASSESSMENT AND VITAL SIGNS DONE. DRESSING ON LEFT FOOT IS CDI. SCHEDULED AND PRN MEDS ADMINISTERED. pt C/O 5/10 PAIN. PRN PAIN MEDS ADMINISTERED. CPAP AT BED SIDE pt WILL USE IT WHEN HE IS READY TO SLEEP. IV ASSESSED, WNL. IV ABX INFUSING PER ORDER. pt DENIES ANY OTHER NEEDS AT THIS TIME. CALL LIGHT WITHIN REACH.
--- NOTE | 2025-06-08 00:04 | NUR ---
IN RM TO CHECK ON pt. pt REQUSTED A REFILL ON ICE WATER AND CRANBERRY JUICE. WATER REFRESHED. CRANBERRY JUICE GIVEN. URINAL EMPTIED. pt DENIES ANY OTHER NEEDS AT THIS TIME. CALL LIGHT WITHIN REACH.
--- NOTE | 2025-06-08 01:49 | NUR ---
rounded on pt, pt resting in bed with eyes closed, on ra. rr even and unlabored. no distress noted, call light in reach.
--- NOTE | 2025-06-08 04:02 | NUR ---
pt RESTING IN THE BED WITH EYES CLOSED. RR EVEN AND UNLABORED. CALL LIGHT WITHIN REACH.
--- NOTE | 2025-06-08 04:08 | NUR ---
THIS RN ASSUMING CARE OF PATIENT. PATIENT RESTING IN BED WITH EYES CLOSED. RESPIRATIONS EVEN AND UNLABORED. CALL LIGHT IN REACH.
[2025-06-08 05:23] LABS: BASOPHILS 0.8 % (0.2-1.2); EOSINOPHILS 0 % (0.8-7.0); LYMPHOCYTES 35.0 % (21.8-53.1); MCH 26.9 PG (25.7-32.2); MCHC 33.6 g/dL (32.3-36.5); MCV 80.0 fL (79.0-92.2); MONOCYTES 7.7 % (5.3-12.2); NEUTROPHILS 56.1 % (34.0-67.9); RBC 4.84 M/uL (4.63-6.08)
[2025-06-08 05:24] VITALS: BP 131/86
[2025-06-08 05:29] VITALS: BP 131/86
[2025-06-08 05:30] LABS: GLOMERULAR FILTRATION RATE,EST 112.0 mL/min (>60); UREA NITROGEN 13.0 mg/dL (7-18)
--- NOTE | 2025-06-08 05:45 | NUR ---
PATIENT RESTING IN BED. VS AND I&Os OBTAINED AND RECORDED. LLE DRESSING C/D/I. LLE ELEVATED ON PILLOW. PATIENT REPORTS 710 LLE PAIN. PRN PAIN MEDICATION ADMINISTERED PER PATIENT REQUEST. SCHEDULED IV ABX INFUSING PER ORDER. RIGHT AC IV FLUSHES WNL. FRESH ICE WATER AND JUICE PROVIDED. PATIENT DENIES FURTHER NEEDS AT THIS TIME. CALL LIGHT IN REACH.
--- NOTE | 2025-06-08 07:03 | NUR ---
REPORT RECEIVED FROM RESIDUE FURNACE OPERATOR RN VIRAL. PATIENT IS LYING IN BED ON HIS LEFT SIDE WITH EYES CLOSED AND RESPIRATIONS ARE EVEN AND UNLABORED. CALL LIGHT AND PERSONAL BELONGINGS ARE WITHIN REACH.
[2025-06-08 08:23] VITALS: BP 132/90
[2025-06-08 08:28] VITALS: BP 132/90
--- NOTE | 2025-06-08 09:14 | NUR ---
PATIENT IS SITTING ON THE EDGE OF BED WITH EYES OPEN AND RESPIRATIONS ARE EVEN AND UNLABORED. MICHELLE HAM IS IN THE ROOM AT THIS TIME. CALL LIGHT AND PERSONAL BELONGINGS ARE WITHIN REACH.
--- NOTE | 2025-06-08 09:51 | NUR ---
INTO SEE PATIENT. HE STATES HE HAS NO CM NEEDS. WILL GO HOME WHEN MEDICALLY CLEARED FOR D/C. AWAITING CULTURE RESULTS.
--- NOTE | 2025-06-08 09:55 | NUR ---
PATIENT IS SITTING ON THE EDGE OF BED. PATIENT WITH EYES OPEN AND RESPIRATIONS ARE EVEN AND UNLABORED. FULL ASSESSMENT COMPLETE AND DOCUMENTED IN THE CHART. DRESSING TO THE LEFT FOOT IS CLEAN, DRY, AND INTACT. SKIN WITH SCATTERED TATTOOS AND SCARS NOTED. PATIENT RATED PAIN A 5/10 IN THE LEFT FOOT. PATIENT IS REQUESTING PAIN MEDICATION. PATIENT IS ON ROOM AIR AND LUNG SOUNDS ARE CLEAR IN THE UPPER LOBS AND DIMINISHED IN THE BASES BILATERALLY. NUMBNESS AND TINGLING REPORTED IN THE HAND AND FEET AT BASELINE. PATIENT STATED NO FURTHER NEEDS AT THIS TIME. CALL LIGHT AND PERSONAL BELONGINGS ARE WITHIN REACH.
--- NOTE | 2025-06-08 10:46 | NUR ---
VM LEFT FOR DR. GOOD, WILL AWAIT RETURN CALL TO UPDATE. PER BRANDON IN LAB, [facility] CALLED AND THEY RECEIVED THE WOUND CULTURE AND IT IS THE BLUE TOP, THEY UNFORTUNATELY ARE UNABLE TO RUN THE ANAEROBIC CULTURE OFF THAT CULTURE SWAB, ONLY WILL BE ABLE TO RESULT THE AEROBIC CULTURE. DR. VELÁSQUEZ NOTIFIED WELL. ALSO, RECENT INTERACTION WITH THIS RN IN THE HALLWAY, PT REQUESTING GUIDANCE OUT OF FACILITY SO HE COULD GO SMOKE. INFORMED PATIENT OF OUR NON-SMOKING HOSPITAL POLICY PT WANTED TO GO TO CAR TO SMOKE. PT REQUESTING TO LEAVE IN VEHICLE AND RETURN, INFORMED THAT WAS NOT ALSO PERMITTED. PT WAS OFFERED A NICOTINE PATCH, WHICH HE REFUSED, STATING, " I NEED THE NICOTINE IN MY LUNGS". PT WAS VERY UPSET, CURSING AND USING PROFANITY AT THIS RN WITH NUCLEAR SCIENTIST PRESENT DURING INTERACTION. PT AMBULATED W/ FWW BACK TO HIS ROOM UPSET. IN THE HALLWAY PT WENT TO PULL OWN IV OUT, REQUESTED THAT HE NOT DO THAT AT THIS TIME, IF HE WANTED IT OUT I COULD PULL IT IN THE ROOM IF HE WANTED TO LEAVE. PT DID NOT WANT TO LEAVE AT THIS TIME. PRIMARY RN/DR. VELÁSQUEZ UPDATED ON THIS INTERACTION WELL.
--- NOTE | 2025-06-08 10:52 | NUR ---
THIS MORING SET PATIENT UP TO TAKE A SHOWER. PATIENT IS INDEPENDENT.
--- NOTE | 2025-06-08 11:00 | NUR ---
URINAL EMPTIED OF 350 ML OF YELLOW URINE. IV SITE REMAINS INTACT. PATIENT STATED NO FURTHER NEEDS AT THIS TIME. CALL LIGHT AND PERSONAL BELONGINGS ARE WITHIN REACH.
[2025-06-08] MEDS ORDERED: CIPROFLOXACIN750 MG PO (11:35)
[2025-06-08] MEDS ORDERED: METRONIDAZOLE500 MG PO (11:36)
[2025-06-08] MEDS ORDERED: BACTRIM DS TAB1 EACH PO (11:37)
[2025-06-08] MEDS ORDERED: OXYCODONE HCL5 M1 PO (11:38)
[2025-06-08 12:16] VITALS: BP 131/93
[2025-06-08 12:19] VITALS: BP 131/93
== END 2025-06-08 13:00 | disposition home or self-care (01) | DRG 638 ==
LOC: ED 02:41 → MS 02:42
PROVIDERS: Internal Medicine; ADMIT Student in an Organized Health Care Education/Training Program; ATTEND Student in an Organized Health Care Education/Training Program
PROC: 3E03329 Introduction of Other Anti-infective into Peripheral Vein, Percutaneous Approach (ICD-10-PCS; principal; 2025-06-05)
PROC: 5A09357 Assistance with Respiratory Ventilation, Less than 24 Consecutive Hours, Continuous Positive Airway Pressure (ICD-10-PCS; 2025-06-05)
DX: E11.69 Type 2 diabetes mellitus with other specified complication (principal); L03.116 Cellulitis of left lower limb; Z68.42 Body mass index [BMI] 45.0-49.9, adult; M86.172 Other acute osteomyelitis, left ankle and foot; I10 Essential (primary) hypertension; G47.33 Obstructive sleep apnea (adult) (pediatric); K21.9 Gastro-esophageal reflux disease without esophagitis; F41.9 Anxiety disorder, unspecified; E66.813 Obesity, class 3; Z66 Do not resuscitate; E11.40 Type 2 diabetes mellitus with diabetic neuropathy, unspecified; L97.524 Non-pressure chronic ulcer of other part of left foot with necrosis of bone; E11.621 Type 2 diabetes mellitus with foot ulcer; E78.00 Pure hypercholesterolemia, unspecified; J45.909 Unspecified asthma, uncomplicated; Z86.711 Personal history of pulmonary embolism; Z86.718 Personal history of other venous thrombosis and embolism; Z89.422 Acquired absence of other left toe(s); Z79.84 Long term (current) use of oral hypoglycemic drugs; Z79.85 Long-term (current) use of injectable non-insulin antidiabetic drugs; Z79.01 Long term (current) use of anticoagulants
CPT/HCPCS: 36415; 73630; 80048; 80053; 80307; 81003; 83605; 83735; 85025; 85651; 86140; 87070; 87205; 94660; A9270; J0878; J1171; J2270; J2405; J2543; J7121

== ENCOUNTER 2025-06-08 23:12 | Emergency (ER) | payer OTHER ==
[~2025-06-08] VITALS: Ht 193 cm; Wt 171.7 kg
[~2025-06-08 23:12] MED LIST changes: +OXYCODONE HCL5 M1 PO
--- OUTSIDE RECORDS SUMMARY | 2025-06-08 23:19 | XMS ---
PreManage Notification: GILBERT GAINES Security Veterinary Nurse Events No recent Security Events currently on file CRITERIA MET - [facility] - 2 Visits in 30 Days CARE PROVIDERS -, [facility]ist: Manager [employer] [facility] PHONE: [phone] [facility] Clinic/Center: [facility] PHONE: [phone] Jayy has no Care Guidelines for this patient. ESerafin VISIT COUNT (12 MO.) [address] [place] [address] TOTAL 8 NOTE: Visits indicate total known visits. ED/UCC VISIT TRACKING (12 MO.) 06/08/2025 23:12 [facility] TYPE: Emergency COMPLAINT: - WOUND CHECK 06/05/2025 02:41 [facility] TYPE: Emergency COMPLAINT: - POSS INFECTION 04/23/2025 02:27 [facility] TYPE: Emergency COMPLAINT: - WOUND CHECK 04/10/2025 19:52 [facility] TYPE: Emergency COMPLAINT: - LEG PAIN/INJURY DIAGNOSES: - Cellulitis of left lower limb - Diabetes mellitus due to underlying condition with foot ulcer - Essential (primary) hypertension - Gastro-esophageal reflux disease without esophagitis - [facility] (current) use of oral hypoglycemic drugs - Other termite inspector (current) drug therapy - Other psychoactive substance [...] - Gastro-esophageal reflux disease without esophagitis - [facility] (current) use of anticoagulants - superintendent terminal (current) use of oral hypoglycemic drugs - Long-term (current) use of injectable non-insulin antidiabetic drugs - Non-pressure chronic ulcer of other part of left foot with unspecified severity - Other nursing home (current) drug therapy - Personal history of [...] - Gastro-esophageal reflux disease without esophagitis - superintendent terminal (current) use of anticoagulants - superintendent terminal (current) use of oral hypoglycemic drugs - Non-pressure chronic ulcer of other part of left foot with unspecified severity - Obesity, unspecified - Other termite inspector (current) drug therapy - Personal history of [...] - Gastro-esophageal reflux disease without esophagitis - [facility] (current) use of oral hypoglycemic drugs - Non-pressure chronic ulcer of other part of left foot limited to breakdown of skin - Other nursing home (current) drug therapy - Type 2 diabetes mellitus with foot ulcer 07/13/2024 04:10 [facility] TYPE: Emergency COMPLAINT: - SKIN PROBLEM DIAGNOSES: - Acute upper respiratory infection, unspecified - Cellulitis of left toe - Essential (primary) hypertension - [facility] (current) use of anticoagulants - Non-pressure chronic ulcer of other part of left foot limited to breakdown of skin - Other termite inspector (current) drug therapy - Other specified soft tissue disorders - Pure hypercholesterolemia, unspecified - Type 2 diabetes mellitus with foot ulcer - Unspecified asthma, uncomplicated INPATIENT VISIT TRACKING (12 MO.) 06/05/2025 09:25 [facility] TYPE: Medical Surgical COMPLAINT: - OSTEOMYELITIS LEFT FOOT 04/23/2025 06:49 [facility] TYPE: [facility] COMPLAINT: - DIABETIC FOOT INFECTION WITH OSTEOMYELITIS DIAGNOSES: - Body mass index [BMI] 45.0-49.9, adult - Body mass index [BMI] 45.0-49.9, adult - Cellulitis of left lower limb - Cellulitis of left lower limb - Cutaneous abscess of left foot - Cutaneous abscess of left foot - Do not resuscitate - Do not resuscitate - Essential (primary) hypertension - Essential (primary) hypertension - Gastro-esophageal reflux disease without esophagitis - Gastro-esophageal reflux disease without esophagitis - Hypo-osmolality and hyponatremia - Hypo-osmolality and hyponatremia - superintendent terminal (current) use of anticoagulants - [facility] (current) use of anticoagulants - [facility] (current) use of oral hypoglycemic drugs - [facility] (current) use of oral hypoglycemic drugs - Non-pressure chronic ulcer of left heel and midfoot with necrosis of bone - Non-pressure chronic ulcer of left heel and midfoot with necrosis of bone - Obstructive sleep apnea (adult) (pediatric) - Obstructive sleep apnea (adult) (pediatric) - Other acute osteomyelitis, left ankle and foot - Other acute osteomyelitis, left ankle and foot - Other staphylococcus as the cause of diseases classified elsewhere - Other staphylococcus as the cause of diseases classified elsewhere - Other stimulant abuse, uncomplicated - Other stimulant abuse, uncomplicated - Personal history of other venous thrombosis and embolism - Personal history of other venous thrombosis and embolism - Personal history of pulmonary embolism - Personal history of pulmonary embolism - Pure hypercholesterolemia, unspecified - Pure hypercholesterolemia, unspecified - Resistance to other single specified antibiotic - Resistance to other single specified antibiotic - Type 2 diabetes mellitus with diabetic neuropathy, unspecified - Type 2 diabetes mellitus with diabetic neuropathy, unspecified - Type 2 diabetes mellitus with diabetic peripheral angiopathy with gangrene - Type 2 diabetes mellitus with foot ulcer - Type 2 diabetes mellitus with foot ulcer - Type 2 diabetes mellitus with other specified complication - Unspecified asthma, uncomplicated - Unspecified asthma, uncomplicated - Unspecified mood [affective] disorder - Unspecified mood [affective] disorder - OBESITY, CLASS 3 - OBESITY, CLASS 3 [email or web address]
[2025-06-09] MEDS ORDERED: TRIMETHOPRIM/SULFAMETHOXAZOLE 1 EA TAB PO ONE (01:15)
[2025-06-09 01:51] VITALS: BP 142/88
== END 2025-06-09 01:52 | disposition home or self-care (01) ==
LOC: ED 23:12
DX: E11.69 Type 2 diabetes mellitus with other specified complication (principal); M86.172 Other acute osteomyelitis, left ankle and foot; I10 Essential (primary) hypertension; J45.909 Unspecified asthma, uncomplicated; K21.9 Gastro-esophageal reflux disease without esophagitis; E78.00 Pure hypercholesterolemia, unspecified; Z79.84 Long term (current) use of oral hypoglycemic drugs; Z79.01 Long term (current) use of anticoagulants; Z79.899 Other long term (current) drug therapy
CPT/HCPCS: 99282; A9270

== ENCOUNTER 2025-08-04 11:33 | Emergency (ER) | payer OTHER ==
[~2025-08-04] VITALS: Ht 193 cm; Wt 170.0 kg
--- OUTSIDE RECORDS SUMMARY | ~2025-08-04 | XMS | Continuity of Care Document ---
Demographics + + + | Address | [address] | | | [place] [id number] | + + + | Preferred Language | Unknown | + + + | Marital Status | Never | + + + | Sabianism Affiliation | Unknown | + + + | Race | White | + + + | Ethnic Group | Not or | + + + Author + + + | Author | [facility] | + + + | Organization | [facility] | + + + | Address | [address] | | | [place] [address] | + + + | Phone | | + + + Care Team Providers + + + + | Care Economic Developer Name | Role | Phone | + + + + Unavailable | Unavailable | + + + + Unavailable | Unavailable | + + + + Allergies No information. Encounters No information. Functional Status No information. Immunizations + + + + | date | description | facility | + + + + | (no date) | Td (Adult) Preservative | [facility] | | | Free | [facility] | + + + + Medications + + + + | date | description | facility | + + + + | (no date) | Cetirizine HCl | [facility] | | | | [facility] | + + + + | 2025-06-08 00:00 | OXYCODONE HCL | [facility] | | | | [facility] | + + + + | (no date) | APIXABAN | [facility] | | | | [facility] | + + + + | (no date) | METFORMIN HCL | [facility] | | | | [facility] | + + + + | 2025-06-08 00:00 | CIPROFLOXACIN HCL | [facility] | | | | [facility] | + + + + | (no date) | | [facility] | | | LISINOPRIL/HYDROCHLOROTHIAZ | [facility] | | | VENICE | | + + + + | (no date) | OMEPRAZOLE | [facility] | | | | [facility] | + + + + | (no date) | LAMOTRIGINE | [facility] | | | | [facility] | + + + + | 2025-06-08 00:00 | METRONIDAZOLE | [facility] | | | | [facility] | + + + + | (no date) | VENLAFAXINE HCL | [facility] | | | | [facility] | + + + + | (no date) | ATORVASTATIN | [facility] | | | | [facility] | + + + + | (no date) | VENLAFAXINE HCL | [facility] | | | | [facility] | + + + + | 2025-06-08 00:00 | | [facility] | | | SULFAMETHOXAZOLE/TRIMETHOPR | [facility] | | | IM DS | | + + + + | (no date) | PROPRANOLOL HCL | [facility] | | | | [facility] | + + + + | (no date) | HYDROCODONE | [facility] | | | BIT/ACETAMINOPHEN | [facility] | + + + + | (no date) | ALBUTEROL SULFATE | [facility] | | | | [facility] | + + + + | (no date) | Liraglutide | [facility] | | | | [facility] | + + + + Problems + + + + | date | description | facility | + + + + | 2025-06-05 00:00 | Cellulitis of foot | [facility] | | | | [facility] | + + + + | 2025-06-05 00:00 | Osteomyelitis of left foot | [facility] | | | | [facility] | + + + + | 2025-06-09 00:00 | Acute osteomyelitis of | [facility] | | | left foot | [facility] | + + + + Procedures No information. Results/Labs +--------+--------+ +---------+--------+---------+ | test | date | facility | value | unit | notes | +--------+--------+ +---------+--------+---------+ + + | Result panel 1 | + + + + + +------+ + + | ESR RBC Qn | 2025-06-05 | | 38 | (missing) | (missing) | | Mannygrn 2h | 03:25:07 | [facility] | | | | + + + +------+ + + + + | Result panel 2 | + + + + + +-------+ + + | Prot | 2025-06-05 | | 7.9 | (missing) | (missing) | | Maki-Kristen | 03:25:07 | [facility] | | | | + + + +-------+ + + + + | Result panel 3 | + + + + + +-------+ + + | Albumin | 2025-06-05 | | 2.8 | (missing) | (missing) | | SerPl-Kristen | 03:25:07 | [facility] | | | | + + + +-------+ + + + + | Result panel 4 | + + + + + +-------+ + + | Globulin | 2025-06-05 | | 5.1 | (missing) | (missing) | | [facility] | 03:25:07 | [facility] | | | | + + + +-------+ + + + + | Result panel 5 | + + + + + +--------+ + + | | 2025-06-05 | | 0.55 | (missing) | (missing) | | Albumin/Glob | 03:25:07 | [facility] | | | | | [facility]Pl [facility] | | | | + + + +--------+ + + + + | Result panel 6 | + + + + + +-------+---------+ + | Bilirub | 2025-06-05 | | 0.7 | mg/dL | (missing) | | SerPl-mCnc | 03:25:07 | [facility] | | | | + + + +-------+---------+ + + + | Result panel 7 | + + + + + +------+ + + | AST | 2025-06-05 | | 19 | (missing) | (missing) | | SerPl-cCnc | 03:25:07 | [facility] | | | | + + + +------+ + + + + | Result panel 8 | + + + + + +------+ + + | ALT | 2025-06-05 | | 22 | (missing) | (missing) | | SerPl-cCnc | 03:25:07 | [facility] | | | | + + + +------+ + + + + | Result panel 9 | + + + + + +-------+ + + | ALP | 2025-06-05 | | 112 | (missing) | (missing) | | SerPl-cCnc | 03:25:07 | [facility] | | | | + + + +-------+ + + + + | Result panel 10 | + + + + + +-------+ + + | Lactate | 2025-06-05 | | 1.0 | (missing) | (missing) | | SerPl-sCnc | 03:25:07 | [facility] | | | | + + + +-------+ + + + + | Result panel 11 | + + + + + +--------+---------+ + | CRP SerPl | 2025-06-05 | | 8.79 | mg/dL | (missing) | | Ql | 03:25:07 | [facility] | | | | + + + +--------+---------+ + + + | Result panel 12 | + + + + + + + + + | Color Ur | 2025-06-05 | | YELLOW | (missing) | (missing) | | Auto | 04:20:07 | [facility] | | | | + + + + + + + + + | Result panel 13 | + + + + + +---------+ + + | Character | 2025-06-05 | | CLEAR | (missing) | (missing) | | Ur | 04:20:07 | [facility] | | | | + + + +---------+ + + + + | Result panel 14 | + + + + + + + + + | Glucose Ur | 2025-06-05 | | NEGATIVE | (missing) | (missing) | | Ql Strip | 04:20:07 | [facility] | | | | + + + + + + + + + | Result panel 15 | + + + + + + + + + | Bilirub Ur | 2025-06-05 | | NEGATIVE | (missing) | (missing) | | Ql Strip | 04:20:07 | [facility] | | | | + + + + + + + + + | Result panel 16 | + + + + + + + + + | Linda Ur | 2025-06-05 | | NEGATIVE | (missing) | (missing) | | Ql Strip | 04:20:07 | [facility] | | | | + + + + + + + + + | Result panel 17 | + + + + + +---------+ + + | Sp Amador Mendoza | 2025-06-05 | | 1.025 | (missing) | (missing) | | Strip | 04:20:07 | [facility] | | | | + + + +---------+ + + + + | Result panel 18 | + + + + + + + + + | Hgb Ur Ql | 2025-06-05 | | NEGATIVE | (missing) | (missing) | | Strip | 04:20:07 | [facility] | | | | + + + + + + + + + | Result panel 19 | + + + + + +-------+ + + | pH Ur Strip | 2025-06-05 | | 6.0 | (missing) | (missing) | | | 04:20:07 | [facility] | | | | + + + +-------+ + + + + | Result panel 20 | + + + + + + + + + | Prot Ur | 2025-06-05 | | NEGATIVE | (missing) | (missing) | | Strip-mCnc | 04:20:07 | [facility] | | | | + + + + + + + + + | Result panel 21 | + + + + + +-------+ + + | | 2025-06-05 | | 1.0 | (missing) | (missing) | | Urobilinogen | 04:20:07 | [facility] | | | | | Ur | [facility] | Strip-Kristen | | [facility] | | | | + + + +-------+ + + + + | Result panel 22 | + + + + + + + + + | Nitrite Ur | 2025-06-05 | | NEGATIVE | (missing) | (missing) | | Ql Strip | 04:20:07 | [facility] | | | | + + + + + + + + + | Result panel 23 | + + + + + + + + + | Leukocyte | 2025-06-05 | | NEGATIVE | (missing) | (missing) | | esterase Ur | 04:20:07 | [facility] | | | | | Ql Strip [facility] | | | | + + + + + + + + + | Result panel 24 | + + + + + + + + + | | 2025-06-05 | | POSITIVE | (missing) | (missing) | | Amphetamines | 04:20:07 | [facility] | | | | | Ur Ql | [facility] | | | | | Scn>500 | | [facility] | [facility] | ng/mL | [facility] | | | | + + + + + + + + + | Result panel 25 | + + + + + + + + + | | 2025-06-05 | | NEGATIVE | (missing) | (missing) | | Barbiturates | 04:20:07 | [facility] | | | | | Ur Ql | [facility] - [facility] | | | | | Scn>300 | | [facility] | [facility] | ng/mL | | [facility] | | | | + + + + + + + + + | Result panel 26 | + + + + + + + + + | Benzodiaz | 2025-06-05 | | NEGATIVE | (missing) | (missing) | | Ur Ql | 04:20:07 | [facility] | | | | | Scn>300 | [facility] | | | | | ng/mL | [facility] | | | | + + + + + + + + + | Result panel 27 | + + + + + + + + + | Cocaine Ur | 2025-06-05 | | NEGATIVE | (missing) | (missing) | | Ql Scn | 04:20:07 | [facility] | [facility] | | [facility] | | | | + + + + + + + + + | Result panel 28 | + + + + + + + + + | | 2025-06-05 | | NEGATIVE | (missing) | (missing) | | Buprenorphin | 04:20:07 | [facility] | | | | | e Ur Ql Scn | [facility] | | | | + + + + + + + + + | Result panel 29 | + + + + + + + + + | oxyCODONE | 2025-06-05 | | NEGATIVE | (missing) | (missing) | | Ur Ql Scn | 04:20:07 | [facility] | | | | | [facility] | | | | + + + + + + + + + | Result panel 30 | + + + + + + + + + | MDMA Ur Ql | 2025-06-05 | | POSITIVE | (missing) | (missing) | | Scn | 04:20:07 | [facility] | | | [facility] | | | | + + + + + + + + + | Result panel 31 | + + + + + + + + + | Methadone | 2025-06-05 | | NEGATIVE | (missing) | (missing) | | Ur Ql | 04:20:07 | [facility] | | | | | Scn>300 | [facility] | ng/mL | [facility] | | | | + + + + + + + + + | Result panel 32 | + + + + + + + + + | Opiates Ur | 2025-06-05 | | NEGATIVE | (missing) | (missing) | | Ql Scn | 04:20:07 | [facility] | | | | [facility] | | | | + + + + + + + + + | Result panel 33 | + + + + + + + + + | PCP Ur Ql | 2025-06-05 | | NEGATIVE | (missing) | (missing) | | Scn>25 ng/mL | 04:20:07 | [facility] | | [facility] | | | | + + + + + + + + + | Result panel 34 | + + + + + + + + + | THC Ur Ql | 2025-06-05 | | POSITIVE | (missing) | (missing) | | Scn>50 ng/mL | 04:20:07 | [facility] | | | | + + + + + + + + + | Result panel 35 | + + + + + + + + + | fentaNYL Ur | 2025-06-05 | | NEGATIVE | (missing) | (missing) | | Ql Scn | 04:20:07 | [facility] | | | | + + + + + + + + + | Result panel 36 | + + + + + + + + + | Bacteria | 2025-06-05 | | GRAM | (missing) | (missing) | | Spec Aerobe | 17:30:07 | [facility] | NEGATIVE | | | | Cult | [facility] | | | | | | [facility] | | | | + + + + + + + + + | Result panel 37 | + + + + + +--------+ + + | WBC # Bld | 2025-06-08 | | 7.62 | (missing) | (missing) | | Auto | 05:06:07 | [facility] | | | | | [facility] | | | | + + + +--------+ + + + + | Result panel 38 | + + + + + +--------+ + + | Lymphocytes | 2025-06-08 | | 35.0 | (missing) | (missing) | | NFr Bld | 05:06:07 | [facility] | | | | | Auto | | [facility] | | | | + + + +--------+ + + + + | Result panel 39 | + + + + + +-------+ + + | Monocytes | 2025-06-08 | | 7.7 | (missing) | (missing) | | NFr Bld Auto | 05:06:07 | [facility] | | | [facility] | | | | + + + +-------+ + + + + | Result panel 40 | + + + + + +-----+ + + | Eosinophil | 2025-06-08 | | 0 | (missing) | (missing) | | NFr Bld Auto | 05:06:07 | [facility] | | | | | [facility] | | | | + + + +-----+ + + + + | Result panel 41 | + + + + + +-------+ + + | Basophils | 2025-06-08 | | 0.8 | (missing) | (missing) | | NFr Bld Auto | 05:06:07 | [facility] | | [facility] | | | | + + + +-------+ + + + + | Result panel 42 | + + + + + +------+---------+ + | Glucose | 2025-06-08 | | 99 | mg/dL | (missing) | | SerPl-mCnc | 05:06:07 | [facility] | | | | | | [facility] | | | | + + + +------+---------+ + + + | Result panel 43 | + + + + + +------+---------+ + | BUN | 2025-06-08 | | 13 | mg/dL | (missing) | | SerPl-mCnc | 05:06:07 | [facility] | | | [facility] | | | | + + + +------+---------+ + + + | Result panel 44 | + + + + + +--------+---------+ + | Creat | 2025-06-08 | | 0.80 | mg/dL | (missing) | | SerPl-mCnc | 05:06:07 | [facility] | | | | | | | - | | | | | | | [facility] | | | | + + + +--------+---------+ + + + | Result panel 45 | + + + + + +-------+ + + | eGFRcr | 2025-06-08 | | 112 | (missing) | (missing) | | SerPlBld | 05:06:07 | [facility] | | | | | CKD-EPI 2020 | [facility] | | | | + + + +-------+ + + + + | Result panel 46 | + + + + + +---------+ + + | BUN/Creat | 2025-06-08 | | 16.25 | (missing) | (missing) | | SerPl | 05:06:07 | [facility] | | | [facility] | | | | + + + +---------+ + + + + | Result panel 47 | + + + + + +--------+ + + | RBC # Bld | 2025-06-08 | | 4.84 | (missing) | (missing) | | Auto | 05:06:07 | [facility] | | | | + + + +--------+ + + + + | Result panel 48 | + + + + + +-------+ + + | Sodium | 2025-06-08 | | 137 | (missing) | (missing) | | SerPl-sCnc | 05:06:07 | [facility] | | | | | [facility] | | | | + + + +-------+ + + + + | Result panel 49 | + + + + + +-------+ + + | Potassium | 2025-06-08 | | 3.7 | (missing) | (missing) | | SerPl-sCnc | 05:06:07 | [facility] | | | | | [facility] | | | | + + + +-------+ + + + + | Result panel 50 | + + + + + +-------+ + + | Chloride | 2025-06-08 | | 101 | (missing) | (missing) | | SerPl-sCnc | 05:06:07 | [facility] | | | | | [facility] | | | | + + + +-------+ + + + + | Result panel 51 | + + + + + +------+ + + | CO2 | 2025-06-08 | | 30 | (missing) | (missing) | | SerPl-sCnc | 05:06:07 | [facility] | | | | | [facility] | | | | + + + +------+ + + + + | Result panel 52 | + + + + + +-------+ + + | Anion Gap | 2025-06-08 | | 9.7 | (missing) | (missing) | | SerPl | 05:06:07 | [facility] | | | | | Calculated.4 | [facility] | Ions-sCnc | | [facility] | | | | + + + +-------+ + + + + | Result panel 53 | + + + + + +-------+---------+ + | Calcium | 2025-06-08 | | 8.9 | mg/dL | (missing) | | Maki-Kristen | 05:06:07 | [facility] | | | | | [facility] | | | | + + + +-------+---------+ + + + | Result panel 54 | + + + + + +-------+---------+ + | Magnesium | 2025-06-08 | | 2.0 | mg/dL | (missing) | | [facility] | 05:06:07 | [facility] | | | [facility] | | | | + + + +-------+---------+ + + + | Result panel 55 | + + + + + +--------+ + + | Hgb | 2025-06-08 | | 13.0 | (missing) | (missing) | | Bld-mCnc | 05:06:07 | [facility] | | | | | | | - | | | | | | | [facility] | | | | + + + +--------+ + + + + | Result panel 56 | + + + + + +--------+ + + | Hct VFr.DF | 2025-06-08 | | 38.7 | (missing) | (missing) | | Bld Auto | 05:06:07 | [facility] | | | | + + + +--------+ + + + + | Result panel 57 | + + + + + +--------+ + + | RBC Auto | 2025-06-08 | | 80.0 | (missing) | (missing) | | | 05:06:07 | [facility] | | | | + + + +--------+ + + + + | Result panel 58 | + + + + + +--------+ + + | MCH RBC Qn | 2025-06-08 | | 26.9 | (missing) | (missing) | | Auto | 05:06:07 | [facility] | | | | + + + +--------+ + + + + | Result panel 59 | + + + + + +--------+ + + | MCHC RBC | 2025-06-08 | | 33.6 | (missing) | (missing) | | Auto-EntMCnc | 05:06:07 | [facility] | | | | + + + +--------+ + + + + | Result panel 60 | + + + + + +-------+ + + | Platelet # | 2025-06-08 | | 378 | (missing) | (missing) | | Bld Auto | 05:06:07 | [facility] | | | | + + + +-------+ + + + + | Result panel 61 | + + + + + +--------+ + + | Neutrophils | 2025-06-08 | | 56.1 | (missing) | (missing) | | NFr Bld | 05:06:07 | [facility] | | | | | Auto | | [facility] | | | | + + + +--------+ + + + + | Result panel 62 | + + + + + +-------+ + + | Glucose | 2025-06-08 | | 112 | (missing) | (missing) | | [facility] 11[facility] | | | | + + + +-------+ + + Social History + + + + | date | description | facility | + + + + | (no date) | Unknown if ever smoked | [facility] | | [facility] | + + + + Vital Signs + + + +---------+ | date | measurement | value | units | + + + +---------+ | 2025-06-05 00:00 | BMI | 46.1 | kg/m2 | + + + +---------+ | 2025-06-05 00:00 | height_metric | 193.04 | cm | + + + +---------+ | 2025-06-05 00:00 | height_standard | 76 | in | + + + +---------+ | 2025-06-05 00:00 | weight_metric | 171.699 | kg | + + + +---------+ | 2025-06-05 00:00 | weight_standard | 378.531 | lb | + + + +---------+ | 2025-06-08 00:00 | BMI | 46.1 | kg/m2 | + + + +---------+ | 2025-06-08 00:00 | BP_diastolic | 93 | mmHg | + + + +---------+ | 2025-06-08 00:00 | BP_systolic | 131 | mmHg | + + + +---------+ | 2025-06-08 00:00 | heart_rate | 61 | /min | + + + +---------+ | 2025-06-08 00:00 | height_metric | 193.04 | cm | + + + +---------+ | 2025-06-08 00:00 | height_standard | 76 | in | + + + +---------+ | 2025-06-08 00:00 | o2_saturation | 100 | % | + + + +---------+ | 2025-06-08 00:00 | respiration_rate | 14 | /min | + + + +---------+ | 2025-06-08 00:00 | | 98 | F | | | temperature_standar | | | | | d | | | + + + +---------+ | 2025-06-08 00:00 | weight_metric | 171.699 | kg | + + + +---------+ | 2025-06-08 00:00 | weight_standard | 378.531 | lb | + + + +---------+ | 2025-06-09 00:00 | BP_diastolic | 88 | mmHg | + + + +---------+ | 2025-06-09 00:00 | BP_systolic | 142 | mmHg | + + + +---------+ | 2025-06-09 00:00 | heart_rate | 98 | /min | + + + +---------+ | 2025-06-09 00:00 | o2_saturation | 98 | % | + + + +---------+ | 2025-06-09 00:00 | respiration_rate | 16 | /min | + + + +---------+ | 2025-06-09 00:00 | | 98.2 | F | | | temperature_standar | | | | | d | | | + + + +---------+"
[2025-08-04] MEDS ORDERED: CEFUROXIME500 MG PO (11:47)
[2025-08-04 12:59] LABS: BASOPHILS 0.8 % (0.2-1.2); EOSINOPHILS 0.1 % (0.8-7.0); LYMPHOCYTES 35.5 % (21.8-53.1); MCH 27.3 PG (25.7-32.2); MCHC 34.3 g/dL (32.3-36.5); MCV 79.5 fL (79.0-92.2); MONOCYTES 9.1 % (5.3-12.2); NEUTROPHILS 53.8 % (34.0-67.9); RBC 4.84 M/uL (4.63-6.08)
[2025-08-04 13:16] LABS: ALT (SGPT) 26.0 U/L (14-59); AST (SGOT) 22.0 U/L (15-37); GLOMERULAR FILTRATION RATE,EST 120.0 mL/min (>60); PROTEIN, TOTAL 7.2 g/dL (6.4-8.2); UREA NITROGEN 16.0 mg/dL (7-18)
[2025-08-04 13:20] VITALS: BP 179/88
== END 2025-08-04 13:25 | disposition other institution, planned readmission (95) ==
LOC: ED 11:33
PROVIDERS: Emergency Medicine
DX: S81.802A Unspecified open wound, left lower leg, initial encounter (principal); I10 Essential (primary) hypertension; E78.00 Pure hypercholesterolemia, unspecified; E11.9 Type 2 diabetes mellitus without complications; J45.909 Unspecified asthma, uncomplicated; K21.9 Gastro-esophageal reflux disease without esophagitis; Z89.422 Acquired absence of other left toe(s); Z53.29 Procedure and treatment not carried out because of patient's decision for other reasons; Z79.4 Long term (current) use of insulin; Z79.84 Long term (current) use of oral hypoglycemic drugs; Z79.01 Long term (current) use of anticoagulants; Z79.899 Other long term (current) drug therapy; X58.XXXA Exposure to other specified factors, initial encounter
CPT/HCPCS: 36415; 80053; 85025; 99283